=== PATIENT | female | born 1990 | race Caucasian/White ===

== ENCOUNTER → 2021-02-21 08:16 | Outpatient (CLI) | payer OTHER, SELFPAY ==
--- NOTE | ~2021-02-21 | MMUS_ITS ---
EXAMINATION: MM diagnostic era BI w chrystal, US breast BI complete HISTORY: Palpable breast abnormality by clinical examination TECHNIQUE: Additional 3-D tomosynthesis images of the breasts were performed and synthetic 2-D images were generated. CAD analysis was submitted and interpreted. High resolution complete bilateral breas t ultrasound was performed. COMPARISON: No prior studies for comparison. BREAST PARENCHYMAL COMPOSITION: The breasts are heterogenously dense, which may obscure small masses FINDINGS: MAMMOGRAPHIC FINDINGS: There are masses in the upper outer quadrant of both breasts which are partially obscured by fibrogla ndular tissue. There are no suspicious calcifications or architectural distortion. ULTRASOUND: Complete bilateral breast ultrasound: There are multiple benign bilateral breast cyst in both breasts . In the left axilla there is a 1.7 cm lymph node with normal fatty hilum. No suspicious masses in ei ther breast to suggest malignancy. IMPRESSION: 1. Benign bilateral breast masses. No evidence for malignancy in either breast. 2. Routine yearly screening mammogram and regular clinical breast examination are recommended. BI-RADS Category 2: Benign finding(s). Reviewed, dictated and finalized at location A. IMPRESSION: 1. Benign bilateral breast masses. No evidence for malignancy in either breast. 2. Routine yearly screening mammogram and regular clinical breast examination a re recommended. BI-RADS Category 2: Benign finding(s).
== END ==
PROVIDERS: Visit Provider Advanced Practice Midwife
DX: N63.20 Unspecified lump in the left breast, unspecified quadrant (principal)
CPT/HCPCS: 76641; 77062; 77066; G0279

== ENCOUNTER 2022-09-08 15:48 | Observation (INO) | payer OTHER, SELFPAY ==
[2022-09-08] VITALS (7 sets, daily range): BP systolic 130–159; BP diastolic 60–84; PULSE 101–103; RESP 18; TEMP 36.5; O2SAT 98–100
--- NOTE | ~2022-09-08 | US_ITS ---
US retroperitoneal comp 09/08/2022 18:37 Procedure: Realtime transabdominal ultrasound of the kidneys and bladder. Indication: Left flank pain Comparison: No prior studies for comparison. Findings: Right renal echotexture is normal bilaterally without hydronephrosis, contour deforming mas s or renal calculus. There is left hydronephrosis. There are multiple echogenic foci in the left kidn ey and proximal ureter, suspicious for stones. The right kidney measures 11.6 cm and left kidney michele ures 13 cm. Bladder not distended for evaluation. Impression: 1: Probable left renal/ureteral stones with mild hydronephrosis. Reviewed, dictated and finalized at location A. EQUIPMENT OPERATOR Impression: 1: Probable left renal/ureteral stones with mild hydronephrosis.
--- NOTE | 2022-09-08 17:54 | ED.BACK ---
HPI - Back Pain/Injury General Chief Complaint: Back Pain/Injury <Scott Silver PA-C - Last Filed: 09/08/22 20:36> Stated Complaint: left back pain/nausea/22 weeks preg <Scott Silver PA-C - Last Filed: 09/08/22 20:36> Time Seen by Provider: 09/08/22 17:41 <Scott Silver PA-C - Last Filed: 09/08/22 20:36> History of Present Illness HPI Narrative: This is a 32-year-old female who is currently 22 weeks who presents with left flank pain x2 days and worse today. She states the pain is primarily in the left flank but occasionally radiates into the left lower abdomen. She states that she called her OB who told her to come to the ED for further evaluation and to rule out a kidney infection. She denies any urinary symptoms at all. States the pain is at about 6 out of 10. She has not taken any medications prior to arrival. Denies pelvic pain, vaginal bleeding, discharge. Denies fevers, chills, chest pain, shortness of breath, headache, LOC, vision changes. Denies nausea vomiting and diarrhea. Denies any injuries or trauma. Denies any further complaints. A0 <Scott Silver PA-C - Last Filed: 09/08/22 20:36> Related Data Allergies/Adverse Reactions: Allergies Allergy/AdvReac Type Severity Reaction Status Date / Time fentanyl Allergy Unknown Unknown Verified 09/09/22 18:51 <Scott Silver PA-C - Last Filed: 09/08/22 20:36> Review of Systems Review of Systems: CONSTITUTIONAL: Denies fever, chills, or sweats. EYES: Denies visual changes, redness, or discharge. ENT: Denies rhinorrhea, congestion, sore throat, or otalgia. CARDIOVASCULAR: Denies chest pain, palpitations, or edema. RESPIRATORY: Denies cough or dyspnea. GASTROINTESTINAL: Endorses left flank pain and left lower abdominal pain. denies nausea, vomiting, or diarrhea. GENITOURINARY: Denies dysuria or hematuria. SKIN: Denies rash or itching. MUSCULOSKELETAL: Denies back pain, joint pain, or myalgia. NEUROLOGIC: Denies headache, numbness, dizziness, or weakness. PSYCHIATRIC: Denies anxiety or depression. <Scott Silver PA-C - Last Filed: 09/08/22 20:36> PMFSH Family History Family History: Family History Sibling Hypertension Asthma Father Family history of diabetes mellitus in first degree relative Family history of sleep apnea Grandparent Family history of malignant neoplasm of breast Family history of heart disease in male family member before age 55 Diabetes mellitus Other Family history of alcoholism Family history of malignant neoplasm <Scott Silver PA-C - Last Filed: 09/08/22 20:36> Social History Social History: Social History Smoking status: Never smoker Alcohol intake: current <Scott Silver PA-C - Last Filed: 09/08/22 20:36> Exam Narrative: GENERAL: Well-appearing, well-nourished, and in no acute distress. HEAD: Normocephalic, atraumatic. EYES: PERRLA and EOMI. ENT: Nares clear, no rhinorrhea or epistaxis. Mucous membranes moist. Oropharynx without tonsillar hypertrophy exudate or other lesions. NECK: Supple. No adenopathy or masses. CHEST: No respiratory distress. Clear to auscultation. No wheezes rales or rhonchi HEART: Regular rate and rhythm. No murmur heard. Normal peripheral pulses. ABDOMEN: Soft, nontender, nondistended, normal active bowel sounds. Gravid abdomen. There is also no tenderness in the flanks. Negative peritoneal signs. EXTREMITIES: Normal range of motion. No edema. SKIN: Warm, dry, no rash. NEURO: Alert and oriented x3. No focal deficits. PSYCH: Normal mood and affect. <Scott Silver PA-C - Last Filed: 09/08/22 20:36> Course Course Emergency Course: 1856: Spoke with Dr. Harley (urology) -agrees with plan for admission and agrees with starting Rocephin. No further recommendations. He will see her in the morning 193:
[2022-09-08 18:05] LABS: Basophils Percent Auto 0.1 % (0.2-1.2); Eosinophils Absolute Auto 0.1 K/mm3 (0-0.3); Eosinophils Percent Auto 0.6 % (0-4.4); Hematocrit 31.4 % (37.0-47.0); Hemoglobin 10.3 g/dL (12.0-15.0); Immature Granulocyte Absolute 0.05 K/mm3 (0.00-0.031); Immature Granulocyte Percent A 0.4 % (0-0.5); Lymphocytes Absolute Auto 1.22 K/mm3 (0.9-3.2); Lymphocytes Percent Auto 8.6 % (18.3-44.2); Mean Corpuscular HGB Conc 32.8 g/dl (32-36); Mean Corpuscular Hemoglobin 28.3 pg (26-34); Mean Corpuscular Volume 86.3 fl (80-100); Mean Platelet Volume 9.5 fl (7.4-10.4); Monocytes Absolute Auto 0.8 K/mm3 (0.1-0.6); Monocytes Percent Auto 5.7 % (2.6-8.5); Neutrophils Absolute Auto 11.9 K/mm3 (1.3-6.7); Neutrophils Percent Auto 84.6 % (45.5-73.1); Platelet Count Result 375 k/mm3 (150-375); Red Blood Count 3.64 M/mm3 (4.2-5.4); Red Cell Distribution Width 13.3 % (11.5-14.5); White Blood Count 14.1 K/mm3 (4.5-10.0)
[2022-09-08 18:15] LABS: Appearance Urine Slightly Cloudy (Clear); Bilirubin Urine Negative (Negative); Blood Urine 3+ (Negative); Color Urine Yellow (Yellow); Glucose Urine UA Negative (Negative); Ketones Urine Negative (Negative); Leukocyte Esterase Ur Negative LEU/UL (Negative); Nitrate Urine Negative (Negative); Protein Urine 2+ mg/dL (Negative); Specific Grav Ur 1.025 (1.001-1.035); Urobilinogen Urine 0.2 mg/dL (<2.0); pH Urine 6.5 (5.0-9.0)
[2022-09-08 18:16] LABS: Alanine Aminotransferase 17 U/L (6-35); Albumin Level 4.1 g/dL (3.5-5.1); Alkaline Phosphatase 118 U/L (38-126); Anion Gap 6 mmol/L (8-16); Aspartate Amino Transferase 17 U/L (14-36); Bilirubin,Total 0.3 mg/dL (0.2-1.3); Blood Urea Nitrogen 7 mg/dL (7-17); Calcium 9.2 mg/dL (8.4-10.2); Carbon Dioxide 24 mmol/L (22-30); Chloride 105 mmol/L (98-107); Estimated CRCL calculation 130 ml/min; Estimated Glomerular Filt Rate > 60; Glucose 125 mg/dL (65-110); Potassium 3.7 mmol/L (3.4-5.0); Sodium 135 mmol/L (137-145)
[2022-09-08 18:27] LABS: Mucus Urine Rare /lpf; RBC Urine >75 /hpf (0-2); Squamous Epithelial Cell Urine Occasional /hpf (Few); WBC Urine 51-75 /hpf
[2022-09-08 18:28] LABS: Add Urine Microscopic? YES
[2022-09-08] MEDS: SODIUM CHLORIDE 0.9% IV 1,000 ML 999 ML IV CONT (18:40)
--- NOTE | 2022-09-08 19:21 | PC.NURSE ---
First encounter w/ pt. Pt resting comfortably in bed, states her back pain is feeling better. NAD, updated pt on plan of care, all needs addressed, no question at this time.
[2022-09-08 19:37] LABS: Lactic Acid Reflex 1.2 mmol/L (0.7-2.0)
[2022-09-08 19:40] LABS: CRP 2.8 mg/dL (<1.0)
[2022-09-08 20:18] LABS: Erythrocyte Sedimentation Rate 124 mm/hr (0-20)
[2022-09-08 20:42] LABS: Influenza A QL RT-PCR Negative (Negative); Influenza B QL RT-PCR Negative (Negative); RSV RNA, RT-PCR Negative (Negative); SARS-CoV-2 RNA PCR Negative
[2022-09-09 02:48] VITALS: TEMP 36.4
[2022-09-09 02:55] VITALS: BP 130/65; PULSE 73
[2022-09-09 07:26] VITALS: BP 124/68; PULSE 92
--- NOTE | 2022-09-09 08:41 | PM.IMHP ---
H&P: HPI History of Present Illness Date/Time: 09/09/22 08:41 Chief Complaint: This is a 32-year-old female who is currently 22 weeks who presents with left flank pain x2 days and worse today.? She states the pain is primarily in the left flank but occasionally radiates into the left lower abdomen.? Currently denies any pain, received antibiotics and IV tylenol over night.? She denies any urinary symptoms at all.? Review of Systems Review of Systems: All systems reviewed & are unremarkable except as noted in HPI and below [facility] Family History Family History (Updated 02/18/16 @ 23:19 by DOCTOR UNKNOWN) Sibling Hypertension Asthma Father Family history of diabetes mellitus in first degree relative Family history of sleep apnea Grandparent Family history of malignant neoplasm of breast Family history of heart disease in male family member before age 55 Diabetes mellitus Other Family history of alcoholism Family history of malignant neoplasm Social History Social History Smoking status: Never smoker Alcohol intake: current Meds Home Medications and Allergies Allergies Allergy/AdvReac Type Severity Reaction Status Date / Time fentanyl Allergy Unknown Unknown Verified 09/08/22 17:51 Vital Signs Vital Signs - 24 hr 09/08/22 15:57 09/08/22 19:25 09/08/22 19:29 Temperature 36.5 C Pulse Rate 103 H Respiratory Rate 18 Blood Pressure 159/78 H 147/84 H Pulse Oximetry 100 98 99 Oxygen Delivery Room Air 09/08/22 19:30 09/08/22 19:31 09/08/22 19:45 Temperature Pulse Rate Respiratory Rate Blood Pressure 140/83 Pulse Oximetry 98 98 98 Oxygen Delivery 09/08/22 21:21 09/09/22 02:55 09/09/22 07:26 Temperature Pulse Rate 101 H 73 92 Respiratory Rate Blood Pressure 130/60 130/65 124/68 Pulse Oximetry Oxygen Delivery 09/09/22 02:48 Temperature 36.4 C L Pulse Rate Respiratory Rate Blood Pressure Pulse Oximetry Oxygen Delivery Exam Const: General: cooperative, healthy appearing and comfortable Resp: Effort & Inspection: normal respiratory effort and able to speak in complete sentences GI: Other: gravid Skin: General skin exam: normal color and no rashes or lesions noted Extrem: Right lower extremity: normal to inspection Left lower extremity: normal to inspection Psych: Appearance: grossly normal H&P: Results Labs Labs: Short CBC 09/08/22 Range/Units 17:56 WBC 14.1 H (4.5-10.0) K/mm3 Hgb 10.3 L (12.0-15.0) g/dL Hct 31.4 L (37.0-47.0) % Plt Count 375 (150-375) k/mm3 BMP 09/08/22 17:56 Sodium 135 L Potassium 3.7 Chloride 105 Carbon Dioxide 24 BUN 7 Creatinine 0.60 L Glucose 125 H Calcium 9.2 Liver Function 09/08/22 Range/Units 17:56 Total Bilirubin 0.3 (0.2-1.3) mg/dL AST 17 (14-36) U/L ALT 17 (6-35) U/L Alkaline Phosphatase 118 (38-126) U/L Albumin 4.1 (3.5-5.1) g/dL Urine 09/08/22 Range/Units 18:07 Urine Color Yellow (Yellow) Urine Appearance Slightly cloudy (Clear) Urine pH 6.5 (5.0-9.0) Ur Specific [place] 1.025 (1.001-1.035) Urine Protein 2+ H (Negative) mg/dL Urine Glucose (UA) Negative (Negative) mg/dL Assessment and Plan Assessment and plan (1) Left nephrolithiasis: Code(s): N20.0 - Calculus of kidney Status: Acute (2) UTI (urinary tract infection): Code(s): N39.0 - Urinary tract infection, site not specified Status: Acute Plan at 22 weeks gestation ?Left nephrolithiasis UTI (urinary tract infection) Rocephin Per ED, urology to see pt this morning, awaiting any orders, DR. Shipley aware of POC
--- NOTE | 2022-09-09 11:18 | PC.NURSE ---
Urology at the bedside.
--- NOTE | 2022-09-09 11:22 | PC.NURSE ---
Bob Teran updated on the pt being seen by Urology. Order received to discharge the pt with Macrobid 100mg BID for 7 days and follow up with Dr. Osborn in the office this week.
--- NOTE | 2022-09-09 14:56 | WPDURCON ---
Assessment and Plan Assessment and plan (1) Hydronephrosis, left: Code(s): N13.30 - Unspecified hydronephrosis Status: Acute Assessment and Plan: Etiology is unclear. Renal ultrasound is not the best study for documentation of stones. Nonetheless patient is completely asymptomatic at this time. I have discussed the possibility of a ureteral stone requiring intervention with either ureteroscopy or stent placement if pain recurs or has significant temperature or uncontrolled pain. Patient will follow-up at the office at this point time after delivery. If develops any problems prior that she can notify our office. Urology Consult Note HPI Date Seen: 09/09/22 Requesting Physician: Ezra Shipley MD Primary Care Provider: PHYSICIAN NOT ON STAFF Consult Narrative Reason for consult: Left renal colic with possible ureteral calculus and hydro Narrative: Anel Celaya is a 32 year old female with 22 weeks . Patient was admitted with left flank pain. Renal ultrasound revealed some mild left hydroureter and question of renal and ureteral stone. [place] [address] with a creatinine level of 0.6. Urinalysis reveals 51-75 white cells with greater than 75 red cells. Leukocyte esterase nitrate negative. Cultures are pending. The time my evaluation patient is completely asymptomatic and is not any pain since last night. Review of Systems Review of Systems: All systems reviewed & are unremarkable except as noted in HPI and below PMFSH Family History Family History Sibling Hypertension Asthma Father Family history of diabetes mellitus in first degree relative Family history of sleep apnea Grandparent Family history of malignant neoplasm of breast Family history of heart disease in male family member before age 55 Diabetes mellitus Other Family history of alcoholism Family history of malignant neoplasm Social History Social History Smoking status: Never smoker Alcohol intake: current Meds Home Medications and Allergies Home Medications Medication Instructions Recorded Confirmed Type nitrofurantoin macrocrystal 100 mg 100 mg PO Q12H #14 caps 09/09/22 Rx capsule Allergies Allergy/AdvReac Type Severity Reaction Status Date / Time fentanyl Allergy Unknown Unknown Verified 09/08/22 17:51 Vital Signs Vital Signs - 24 hr 09/08/22 15:57 09/08/22 19:25 09/08/22 19:29 Temperature 36.5 C Pulse Rate 103 H Respiratory Rate 18 Blood Pressure 159/78 H 147/84 H Pulse Oximetry 100 98 99 Oxygen Delivery Room Air 09/08/22 19:30 09/08/22 19:31 09/08/22 19:45 Temperature Pulse Rate Respiratory Rate Blood Pressure 140/83 Pulse Oximetry 98 98 98 Oxygen Delivery 09/08/22 21:21 09/09/22 02:55 09/09/22 07:26 Temperature Pulse Rate 101 H 73 92 Respiratory Rate Blood Pressure 130/60 130/65 124/68 Pulse Oximetry Oxygen Delivery 09/09/22 02:48 Temperature 36.4 C L Pulse Rate Respiratory Rate Blood Pressure Pulse Oximetry Oxygen Delivery Exam Const: General: cooperative, comfortable and no acute distress Resp: Effort & Inspection: normal respiratory effort Cardio: Rate: regular rate Rhythm: regular rhythm Results Labs 09/08/22 17:56 09/08/22 17:56 Labs: Short CBC 09/08/22 Range/Units 17:56 WBC 14.1 H (4.5-10.0) K/mm3 Hgb 10.3 L (12.0-15.0) g/dL Hct 31.4 L (37.0-47.0) % Plt Count 375 (150-375) k/mm3 BMP 09/08/22 17:56 Sodium 135 L Potassium 3.7 Chloride 105 Carbon Dioxide 24 BUN 7 Creatinine 0.60 L Glucose 125 H Calcium 9.2 Liver Function 09/08/22 Range/Units 17:56 Total Bilirubin 0.3 (0.2-1.3) mg/dL AST 17 (14-36) U/L ALT 17 (6-35) U/L Alkaline Phosphatase 118 (38-126)
--- NOTE | 2022-09-09 15:18 | PM.OBTRLD ---
OB - Triage/Final Diagnosis Visit Information Date of evaluation: 09/09/22 Reason for evaluation: other (flank pain) Comments/Additional reasons for admission: I have assessed the risk for this patient, Anel Celaya, and determined that she would benefit from observation care. Evaluation Laboratory results: Laboratory Tests 09/08/22 09/08/22 09/08/22 17:56 17:56 18:07 WBC 14.1 H RBC 3.64 L Hgb 10.3 L Hct 31.4 L MCV 86.3 MCH 28.3 MCHC 32.8 RDW 13.3 Plt Count 375 MPV 9.5 Immature Gran % (Auto) 0.4 Neut % (Auto) 84.6 H Lymph % (Auto) 8.6 L [place] % (Auto) 5.7 Eos % (Auto) 0.6 Baso % (Auto) 0.1 L Lymph # (Auto) 1.22 [place] # (Auto) 0.8 H Eos # (Auto) 0.1 Baso # (Auto) 0.0 Abs Immat Gran (auto) 0.05 H Absolute Neuts (auto) 11.9 H Absolute Nucleated RBC 0.0 Nucleated RBC % 0.0 ESR Sodium 135 L Potassium 3.7 Chloride 105 Carbon Dioxide 24 Anion Gap 6 L BUN 7 Creatinine 0.60 L Estim Creat Clear Calc 130 Estimated GFR > 60 Glucose 125 H Lactic Acid Calcium 9.2 Total Bilirubin 0.3 AST 17 ALT 17 Alkaline Phosphatase 118 C-Reactive Protein Total Protein 7.0 Albumin 4.1 Urine Color Yellow Urine Appearance Slightly cloudy Urine pH 6.5 Ur Specific [place] 1.025 Urine Protein 2+ H Urine Glucose (UA) Negative Urine Ketones Negative Ur Blood (Man) 3+ H Urine Nitrate Negative Urine Bilirubin Negative Urine Urobilinogen 0.2 Leukocyte Esterase Rfl Negative Urine RBC >75 H Urine WBC 51-75 H Ur Squamous Epith Cells Occasional Urine Mucus Rare Influenza A (RT-PCR) Influenza B (RT-PCR) RSV (RT-PCR) SARS-CoV-2 RNA (RT-PCR) 09/08/22 09/08/22 09/08/22 19:20 19:20 19:20 WBC RBC Hgb Hct MCV MCH MCHC RDW Plt Count MPV Immature Gran % (Auto) Neut % (Auto) Lymph % (Auto) [place] % (Auto) Eos % (Auto) Baso % (Auto) Lymph # (Auto) [place] # (Auto) Eos # (Auto) Baso # (Auto) Abs Immat Gran (auto) Absolute Neuts (auto) Absolute Nucleated RBC Nucleated RBC % ESR 124 H Sodium Potassium Chloride Carbon Dioxide Anion Gap BUN Creatinine Estim Creat Clear Calc Estimated GFR Glucose Lactic Acid 1.2 Calcium Total Bilirubin AST ALT Alkaline Phosphatase C-Reactive Protein 2.8 H Total Protein Albumin Urine Color Urine Appearance Urine pH Ur Specific [place] Urine Protein Urine Glucose (UA) Urine Ketones Ur Blood (Man) Urine Nitrate Urine Bilirubin Urine Urobilinogen Leukocyte Esterase Rfl Urine RBC Urine WBC Ur Squamous Epith Cells Urine Mucus Influenza A (RT-PCR) Influenza B (RT-PCR) RSV (RT-PCR) SARS-CoV-2 RNA (RT-PCR) 09/08/22 20:01 WBC RBC Hgb Hct MCV MCH MCHC RDW Plt Count MPV Immature Gran % (Auto) Neut % (Auto) Lymph % (Auto) [place] % (Auto) Eos % (Auto) Baso % (Auto) Lymph # (Auto) [place] # (Auto) Eos # (Auto) Baso # (Auto) Abs Immat Gran (auto) Absolute Neuts (auto) Absolute Nucleated RBC Nucleated RBC % ESR Sodium Potassium Chloride Carbon Dioxide Anion Gap BUN Creatinine Estim Creat Clear Calc Estimated GFR Glucose Lactic Acid Calcium Total Bilirubin AST ALT Alkaline Phosphatase C-Reactive Protein Total Protein Albumin Urine Color Urine Appearance Urine pH Ur Specific [place] Urine Protein Urine Glucose (UA) Urine Ketones Ur Blood (Man) Urine Nitrate Urine Bilirubin Urine Urobilinogen Leukocyte Esterase Rfl Urine RBC Urine WBC Ur Squamous Epith Cells Urine Mucus Influenza A (RT-PCR) Negative Influenza B (RT-PCR) Negative RSV (RT-PCR) Negative SARS-CoV-2 RNA (RT-PCR) Negative Vital signs: Vital Signs -
--- NOTE | 2022-09-12 16:59 | P.PNOB_ITS ---
OB - Triage/Final Diagnosis Visit Information Date of evaluation: 09/08/22 Reason for evaluation: other (flank pain) Comments/Additional reasons for admission: I have assessed the risk for this patient, Anel Celaya, and determined that she would benefit from observation care. Evaluation Laboratory results: Laboratory Tests 09/08/22 09/08/22 09/08/22 17:56 17:56 18:07 WBC 14.1 H RBC 3.64 L Hgb 10.3 L Hct 31.4 L MCV 86.3 MCH 28.3 MCHC 32.8 RDW 13.3 Plt Count 375 MPV 9.5 Immature Gran % (Auto) 0.4 Neut % (Auto) 84.6 H Lymph % (Auto) 8.6 L [place] % (Auto) 5.7 Eos % (Auto) 0.6 Baso % (Auto) 0.1 L Lymph # (Auto) 1.22 [place] # (Auto) 0.8 H Eos # (Auto) 0.1 Baso # (Auto) 0.0 Abs Immat Gran (auto) 0.05 H Absolute Neuts (auto) 11.9 H Absolute Nucleated RBC 0.0 Nucleated RBC % 0.0 ESR Sodium 135 L Potassium 3.7 Chloride 105 Carbon Dioxide 24 Anion Gap 6 L BUN 7 Creatinine 0.60 L Estim Creat Clear Calc 130 Estimated GFR > 60 Glucose 125 H Lactic Acid Calcium 9.2 Total Bilirubin 0.3 AST 17 ALT 17 Alkaline Phosphatase 118 C-Reactive Protein Total Protein 7.0 Albumin 4.1 Urine Color Yellow Urine Appearance Slightly cloudy Urine pH 6.5 Ur Specific [place] 1.025 Urine Protein 2+ H Urine Glucose (UA) Negative Urine Ketones Negative Ur Blood (Man) 3+ H Urine Nitrate Negative Urine Bilirubin Negative Urine Urobilinogen 0.2 Leukocyte Esterase Rfl Negative Urine RBC >75 H Urine WBC 51-75 H Ur Squamous Epith Cells Occasional Urine Mucus Rare Influenza A (RT-PCR) Influenza B (RT-PCR) RSV (RT-PCR) SARS-CoV-2 RNA (RT-PCR) 09/08/22 09/08/22 09/08/22 19:20 19:20 19:20 WBC RBC Hgb Hct MCV MCH MCHC RDW Plt Count MPV Immature Gran % (Auto) Neut % (Auto) Lymph % (Auto) [place] % (Auto) Eos % (Auto) Baso % (Auto) Lymph # (Auto) [place] # (Auto) Eos # (Auto) Baso # (Auto) Abs Immat Gran (auto) Absolute Neuts (auto) Absolute Nucleated RBC Nucleated RBC % ESR 124 H Sodium Potassium Chloride Carbon Dioxide Anion Gap BUN Creatinine Estim Creat Clear Calc Estimated GFR Glucose Lactic Acid 1.2 Calcium Total Bilirubin AST ALT Alkaline Phosphatase C-Reactive Protein 2.8 H Total Protein Albumin Urine Color Urine Appearance Urine pH Ur Specific [place]
== END 2022-09-09 11:55 | disposition home or self-care (01) ==
LOC: ANHED 19:36 → ANHOBPP 09-09 11:31
PROVIDERS: Emergency Medicine; Admitting Provider Obstetrics & Gynecology; Emergency Provider Physician Assistant; Visit Provider Obstetrics & Gynecology
DX: O99.891 Other specified diseases and conditions complicating pregnancy (principal); N13.2 Hydronephrosis with renal and ureteral calculous obstruction; N39.0 Urinary tract infection, site not specified; B95.1 Streptococcus, group B, as the cause of diseases classified elsewhere; O26.892 Other specified pregnancy related conditions, second trimester; M79.645 Pain in left finger(s); Z20.822 Contact with and (suspected) exposure to COVID-19; F10.90 Alcohol use, unspecified, uncomplicated; Z3A.22 22 weeks gestation of pregnancy
CPT/HCPCS: 36415; 76770; 80053; 81001; 81025; 83605; 85025; 85652; 86140; 87040; 87086; 87088; 87147; 87637; 96361; 96365; 96367; 99285; G0378; G0379; J0131; J0696; J7030

== ENCOUNTER 2022-09-09 18:27 | Observation (INO) | payer OTHER, SELFPAY ==
--- NOTE | 2022-09-09 18:27 | PC.NURSE ---
Patient arrived to OB unit with complaints of pain s/p kidney stone. Patient was discharged from hospital today and states she passed her kidney stone and is having pain following. Bob Teran CNM notified and orders received.
[2022-09-09 18:51] VITALS: BP 150/88; PULSE 97
[2022-09-09] MEDS: LACTATED RINGERS 1,000 ML 999 ML IV CONT (19:09)
[2022-09-09 19:13] LABS: Basophils Percent Auto 0.2 % (0.2-1.2); Eosinophils Absolute Auto 0.1 K/mm3 (0-0.3); Eosinophils Percent Auto 0.7 % (0-4.4); Hematocrit 31.1 % (37.0-47.0); Hemoglobin 10.1 g/dL (12.0-15.0); Immature Granulocyte Absolute 0.12 K/mm3 (0.00-0.031); Immature Granulocyte Percent A 0.8 % (0-0.5); Lymphocytes Absolute Auto 1.68 K/mm3 (0.9-3.2); Lymphocytes Percent Auto 11.5 % (18.3-44.2); Mean Corpuscular HGB Conc 32.5 g/dl (32-36); Mean Corpuscular Hemoglobin 29.1 pg (26-34); Mean Corpuscular Volume 89.6 fl (80-100); Mean Platelet Volume 9.6 fl (7.4-10.4); Monocytes Percent Auto 6.7 % (2.6-8.5); Neutrophils Absolute Auto 11.7 K/mm3 (1.3-6.7); Neutrophils Percent Auto 80.1 % (45.5-73.1); Platelet Count Result 347 k/mm3 (150-375); Red Blood Count 3.47 M/mm3 (4.2-5.4); Red Cell Distribution Width 13.5 % (11.5-14.5); White Blood Count 14.6 K/mm3 (4.5-10.0)
[2022-09-09 19:42] VITALS: BP 144/78; PULSE 91
[2022-09-09 20:35] VITALS: BMI 32.3
[2022-09-09] MEDS: oxyCODONE HCL (*CRX) 5 MG TAB IR PO (20:49)
[2022-09-10] MEDS: oxyCODONE HCL (*CRX) 5 MG TAB IR PO ×2 (00:51→04:40)
[2022-09-10 04:48] VITALS: BP 141/80; PULSE 102
[2022-09-10 05:00] VITALS: TEMP 37.3
[2022-09-10 07:30] VITALS: TEMP 36.6
[2022-09-10 07:31] VITALS: BP 139/74; PULSE 97
--- NOTE | 2022-09-10 09:01 | PM.IMHP ---
H&P: HPI History of Present Illness Date/Time: 09/10/22 09:01 Chief Complaint: left flank pain. Pt was admitted 09/08/22 for renal colic and nephrolithiasis. pain was resolved with IV tylenol, urology consulted and pt sent home. Pt readmitted 09/09/22 for worsening pain throughout the day when she went home. rated pain at a 5-6 on arrival, IV tylenol not helpful and roxicodone was given.Pt pain this am 1 . Taking roxicodone and using a heating pad for relief. No other complaints or concerns Review of Systems Review of Systems: All systems reviewed & are unremarkable except as noted in HPI and below PMFSH Family History Family History Sibling Hypertension Asthma Father Family history of diabetes mellitus in first degree relative Family history of sleep apnea Grandparent Family history of malignant neoplasm of breast Family history of heart disease in male family member before age 55 Diabetes mellitus Other Family history of alcoholism Family history of malignant neoplasm Social History Social History Smoking status: Never smoker Alcohol intake: current Meds Home Medications and Allergies Home Medications Medication Instructions Recorded Confirmed Type nitrofurantoin macrocrystal 100 mg 100 mg PO Q12H #14 caps 09/09/22 09/09/22 Rx capsule Allergies Allergy/AdvReac Type Severity Reaction Status Date / Time fentanyl Allergy Unknown Unknown Verified 09/09/22 18:51 Vital Signs Vital Signs - 24 hr 09/09/22 18:51 09/09/22 19:42 09/10/22 04:48 Temperature Pulse Rate 97 91 102 H Blood Pressure 150/88 H 144/78 H 141/80 H Oxygen Delivery 09/10/22 05:00 09/10/22 07:31 09/10/22 07:30 Temperature 37.3 C Pulse Rate 97 Blood Pressure 139/74 Oxygen Delivery Room Air 09/10/22 07:30 Temperature 36.6 C Pulse Rate Blood Pressure Oxygen Delivery Exam Const: General: cooperative and healthy appearing Resp: Effort & Inspection: normal respiratory effort GI: Other: gravid H&P: Results Labs Labs: Short CBC 09/09/22 Range/Units 19:03 WBC 14.6 H (4.5-10.0) K/mm3 Hgb 10.1 L (12.0-15.0) g/dL Hct 31.1 L (37.0-47.0) % Plt Count 347 (150-375) k/mm3 Assessment and Plan Assessment and plan (1) Hydronephrosis, left: Code(s): N13.30 - Unspecified hydronephrosis Status: Acute (2) Left nephrolithiasis: Code(s): N20.0 - Calculus of kidney Status: Acute Plan at 22 weeks gestation nephrolithiasis and renal colic plan hydration and alternate roxicodone and tylenol, heat for pain management continue macrobid f/u Urology outpatient If pain severe or any other changes return to LD
--- NOTE | 2022-09-14 07:09 | P.PNOB_ITS ---
OB - Triage/Final Diagnosis Visit Information Date of evaluation: 09/09/22 Reason for evaluation: other (flank pain, nephrolithiasis) Comments/Additional reasons for admission: I have assessed the risk for this patient, Anel Celaya, and determined that she would benefit from observation care. Evaluation Laboratory results: Laboratory Tests 09/09/22 19:03 WBC 14.6 H RBC 3.47 L Hgb 10.1 L Hct 31.1 L MCV 89.6 MCH 29.1 MCHC 32.5 RDW 13.5 Plt Count 347 MPV 9.6 Immature Gran % (Auto) 0.8 H Neut % (Auto) 80.1 H Lymph % (Auto) 11.5 L [place] % (Auto) 6.7 Eos % (Auto) 0.7 Baso % (Auto) 0.2 Lymph # (Auto) 1.68 [place] # (Auto) 1.0 H Eos # (Auto) 0.1 Baso # (Auto) 0.0 Abs Immat Gran (auto) 0.12 H Absolute Neuts (auto) 11.7 H Absolute Nucleated RBC 0.0 Nucleated RBC % 0.0
== END 2022-09-10 09:43 | disposition home or self-care (01) ==
PROVIDERS: Admitting Provider Obstetrics & Gynecology; PCP Advanced Practice Midwife; Visit Provider Obstetrics & Gynecology
DX: O99.891 Other specified diseases and conditions complicating pregnancy (principal); N20.0 Calculus of kidney; N23 Unspecified renal colic; N13.30 Unspecified hydronephrosis; Z3A.22 22 weeks gestation of pregnancy
CPT/HCPCS: 36415; 85025; A9270; G0378; G0379; J0131; J7120

== ENCOUNTER 2022-10-13 16:33 | Observation (INO) | payer OTHER, SELFPAY ==
[2022-10-13] VITALS (23 sets, daily range): BP systolic 46–157; BP diastolic 25–91; PULSE 80–99; TEMP 36.8
--- NOTE | ~2022-10-13 | US_ITS ---
US retroperitoneal limited DATE: 10/13/2022 17:48 INDICATION: Left flank pain TECHNIQUE: Real-time imaging of left kidney and urinary bladder COMPARISON: September 08, 2022 retroperitoneal ultrasound FINDINGS: The right kidney measures approximately 13.8 cm length. There is moderate left hydronephros is 3.2 x 2 x 2.9 cm calcified density is noted at the lower pole left kidney. Noncontrast CT abdomen pelvis examination would be more definitive for evaluation of urinary tract ca lculus and any urinary tract obstruction. IMPRESSION: Moderate left hydronephrosis Left nephrolithiasis Reviewed, dictated and finalized at [facility]. Reviewed, dictated and finalized at location [facility].
--- NOTE | ~2022-10-13 | US_ITS ---
US retroperitoneal comp DATE: 10/14/2022 07:54 INDICATION: Hydronephrosis. History of stones. TECHNIQUE: Real-time imaging of the kidneys and urinary bladder COMPARISON: 10/13/2022 retroperitoneal ultrasound FINDINGS: The right kidney measures 11.8 cm, the left kidney 13.9 cm. There no renal mass lesion is evident. Moderately severe left hydroureteronephrosis. Prominent calculus with shadowing, lower left kidney. Right ureteral jet is demonstrated in the urinary bladder but none on the left. I IMPRESSION: Moderately severe left hydronephrosis with absent left ureteral jet. Left ureteral obstru ction is suspected Left nephrolithiasis Reviewed, dictated and finalized at [facility]. Reviewed, dictated and finalized at location [facility]. IMPRESSION: Moderately severe left hydronephrosis with absent left ureteral jet . Left ureteral obstruction is suspected Left nephrolithiasis
[2022-10-13 17:27] LABS: Basophils Absolute Auto 0.1 K/mm3 (0.0-0.1); Basophils Percent Auto 0.3 % (0.2-1.2); Eosinophils Absolute Auto 0.1 K/mm3 (0-0.3); Eosinophils Percent Auto 0.4 % (0-4.4); Hematocrit 29.6 % (37.0-47.0); Hemoglobin 9.7 g/dL (12.0-15.0); Immature Granulocyte Absolute 0.04 K/mm3 (0.00-0.031); Immature Granulocyte Percent A 0.3 % (0-0.5); Lymphocytes Absolute Auto 1.31 K/mm3 (0.9-3.2); Lymphocytes Percent Auto 8.7 % (18.3-44.2); Mean Corpuscular HGB Conc 32.8 g/dl (32-36); Mean Corpuscular Hemoglobin 28.6 pg (26-34); Mean Corpuscular Volume 87.3 fl (80-100); Mean Platelet Volume 9.3 fl (7.4-10.4); Monocytes Absolute Auto 0.8 K/mm3 (0.1-0.6); Monocytes Percent Auto 5.1 % (2.6-8.5); Neutrophils Absolute Auto 12.8 K/mm3 (1.3-6.7); Neutrophils Percent Auto 85.2 % (45.5-73.1); Platelet Count Result 311 k/mm3 (150-375); Red Blood Count 3.39 M/mm3 (4.2-5.4); Red Cell Distribution Width 13.6 % (11.5-14.5); White Blood Count 15.1 K/mm3 (4.5-10.0)
--- NOTE | 2022-10-13 17:30 | OBADM ---
This patient, Anel Celaya, admitted to the OB room OB Post [facility] for observation. Patient/family oriented to hospital policies and general routines including ID bracelet, bed and alarms, visiting hours, pain management, procedures, bathroom and other care routines, personal items, smoking policy, room service/diet, and visiting hours. Patient/Family are encouraged to report perceived risks to care and to ask questions if they do not understand what they are told or what they should do.
--- NOTE | 2022-10-13 17:33 | PC.NURSE ---
1700--Pt c/o left flank pain with history of a stone. Office visit with urologist yesterday with no pain then. Pain began this AM-unrelieved with Tylenol and minimally relieved with Norco5.
[2022-10-13 17:37] LABS: Appearance Urine Cloudy (Clear); Bacteria Urine Rare /hpf; Bilirubin Urine Negative (Negative); Blood Urine Negative (Negative); Color Urine Yellow (Yellow); Glucose Urine UA Negative (Negative); Hyaline Casts Urine Present /lpf; Ketones Urine 1+ mg/dL (Negative); Leukocyte Esterase Ur 1+ LEU/UL (Negative); Nitrate Urine Negative (Negative); Non Pathogenic Casts 0-2; Protein Urine Trace mg/dL (Negative); RBC Urine 0-2 /hpf (0-2); Specific Grav Ur 1.026 (1.001-1.035); Squamous Epithelial Cell Urine Occasional /hpf (Few); Urobilinogen Urine 0.2 mg/dL (<2.0); WBC Urine 51-100 /hpf; pH Urine 6.5 (5.0-9.0)
[2022-10-13 17:38] LABS: Add Urine Microscopic? YES
--- NOTE | 2022-10-13 18:19 | PC.NURSE ---
1726--to US per wheelchair
[2022-10-13] MEDS: ONDANSETRON HCL ODT 4 MG TABLET PO (18:24)
[2022-10-13] MEDS: HYDROcodone/acetaminophen (*CRX) 5-325 MG TABLET 1 TAB PO ×2 (19:22→23:30)
--- NOTE | 2022-10-13 19:58 | PC.NURSE ---
1899 -- Fox MORENO notified of US results, that patient is hoping to be able to go home for her daughters birthday republican, BP results given to provider with pt stating her BP is high when she is in pain. Orders to get a recent temperature, pain rating, and to find out who her urology consult was with. TIFFANIE states she will review patient's US and chart when she is near the computer in about 15 minutes and call back. 1929 -- Fox MORENO calls unit and orders for urology consult to night due to the size of the calcification and to confirm POC, and PC ratio and 24 hour total protein due to BP results, and that patient will be staying over night for pain control and urology consult in person in the morning. Fox MORENO states she has updated Dr Shipley 1954 -- 24 hour urine jug brought to patient with toilet hat and strainer with education on how to use all of them. Jug of water brought to patient 2002 - Dr Jiménez calls unit and is informed of US results, patient pain control methods and ratings, and orders are received for US of bladder to check for uretal jets and that urology will see her in the morning.
[2022-10-13 22:42] LABS: Collection Time Urine 24 HOURS
[2022-10-13 23:03] LABS: Creatinine Urine 152.2 mg/dL; Total Protein Urine Random 13 mg/dL
--- NOTE | 2022-10-14 04:23 | PM.IMHP ---
H&P: HPI History of Present Illness Date/Time: 10/14/22 04:23 Chief Complaint: Left side pain Narrative: 32 y/o at 27 weeks gestation. History of kidney stones. Urology visit on . Was not experiencing pain at that time. Pt presented with left side pain that started yesterday morning. Pain unrelieved by po medication at home. Denies urinary difficulty. complicated by previous with thinning of uterine scar. PMHX: kidney stone and asthma Review of Systems Review of Systems: See HPI All systems reviewed & are unremarkable except as noted in HPI and below Constitutional: Constitutional: Reports as per HPI and Reports no additional constitutional complaints Eyes: Eyes: Reports as per HPI ENT: Reports system reviewed and no additional complaints, except as documented Cardiovascular: Cardiovascular: Reports as per HPI Respiratory: Respiratory: Reports as per HPI Gastrointestinal: Gastrointestinal: Reports as per HPI Genitourinary: Genitourinary: Reports no additional female genitourinary complaints Musculoskeletal: Musculoskeletal: Reports no additional musculoskeletal complaints Integumentary/Breasts: Skin/Breast: Reports system reviewed and no additional complaints, except as docu Neurologic: Reports system reviewed and no additional complaints, except as documented Psychiatric: Psychiatric: Reports no additional psychiatric complaints Endocrine: Endocrine: Reports no additional endocrine complaints Hematologic/Lymphatic: Hematologic/Lymphatic: Reports no additional hematologic/lymphatic complaints Allergic/Immunologic: Allergic/Immunologic: Reports no additional allergic/immunologic complaints [facility] Family History Family History Sibling Hypertension Asthma Father Family history of diabetes mellitus in first degree relative Family history of sleep apnea Grandparent Family history of malignant neoplasm of breast Family history of heart disease in male family member before age 55 Diabetes mellitus Other Family history of alcoholism Family history of malignant neoplasm Social History Social History Smoking status: Never smoker Alcohol intake: current Meds Home Medications and Allergies Home Medications Medication Instructions Recorded Confirmed Type nitrofurantoin macrocrystal 100 mg 100 mg PO Q12H #14 caps 09/09/22 09/09/22 Rx capsule Allergies Allergy/AdvReac Type Severity Reaction Status Date / Time fentanyl Allergy Unknown Unknown Verified 09/09/22 18:51 Vital Signs Vital Signs - 24 hr 10/13/22 17:02 10/13/22 17:25 10/13/22 18:26 Temperature Pulse Rate 99 97 96 Blood Pressure 151/88 H 150/91 H 153/85 H 10/13/22 18:30 10/13/22 18:45 10/13/22 19:00 Temperature Pulse Rate 97 89 92 Blood Pressure 153/84 H 155/84 H 150/85 H 10/13/22 19:15 10/13/22 19:30 10/13/22 20:00 Temperature Pulse Rate 92 97 97 Blood Pressure 157/87 H 139/81 141/83 H 10/13/22 20:15 10/13/22 19:32 10/13/22 20:30 Temperature 98.3 F Pulse Rate 96 89 Blood Pressure 138/79 140/79 10/13/22 20:47 10/13/22 21:12 10/13/22 21:15 Temperature Pulse Rate 80 83 87 Blood Pressure 46/25 L 138/78 139/77 10/13/22 21:30 10/13/22 21:45 10/13/22 22:00 Temperature Pulse Rate 80 83 87 Blood Pressure 137/78 135/74 135/78 10/13/22 22:15 10/13/22 22:30 10/13/22 22:45 Temperature Pulse Rate 89 91 93 Blood Pressure 136/78 139/80 132/85 10/13/22 23:00 10/13/22 23:15 Temperature Pulse Rate 90 89 Blood Pressure 138/83 134/78 Exam Narrative: 32 y/o healthy appearing female. No acute distress but does c/o intermittent pain that improves with po mediation. VSS and afebrile ( with exception of elevated pressures when in pain) Uterus: no contractions, fhr category 1 Abdomen: no tenderness No sp tenderness Le
[2022-10-14] MEDS: HYDROcodone/acetaminophen (*CRX) 5-325 MG TABLET 1 TAB PO (04:28)
[2022-10-14] MEDS: ONDANSETRON HCL ODT 4 MG TABLET PO (04:31)
[2022-10-14 04:32] VITALS: BP 146/87; PULSE 92
--- NOTE | 2022-10-14 04:48 | PC.NURSE ---
Aziza0 Fox MORENO at bedside assessing patient and discussing POC.
[2022-10-14 07:51] VITALS: BP 145/86; PULSE 97
[2022-10-14 07:54] VITALS: TEMP 36.6
[2022-10-14 08:00] VITALS: BP 142/76; PULSE 97
--- NOTE | 2022-10-14 09:58 | WPDURCON ---
Assessment and Plan Assessment and plan (1) Hydronephrosis, left: Code(s): N13.30 - Unspecified hydronephrosis Status: Acute (2) Left nephrolithiasis: Code(s): N20.0 - Calculus of kidney Status: Acute (3) UTI (urinary tract infection): Code(s): N39.0 - Urinary tract infection, site not specified Status: Acute Plan No need for ureteral stent as pain in managed with oral meds Flomax for possible ueteral stone PO hydration Send urine for Cx Empiric abx f/u BAILEY in 2 weeks Call OB if flank pain worsens, N/V, or fever Urology Consult Note HPI Date Seen: 10/14/22 Requesting Physician: Nora Osborn MD Primary Care Provider: Edna Teran CNM Family Provider: 32 y/o at 27 weeks gestation. History of kidney stones. Urology visit on . Was not experiencing pain at that time. Pt presented with left side pain that started yesterday morning. Pain unrelieved by po medication at home. Denies urinary difficulty. complicated by previous with thinning of uterine scar. Renal US shows mild to mod left hydro with mm stone in lower pole left kidney. Pain is controlled with oral narcotics, no fever, no N/V. Consult Narrative Narrative: Anel Celaya is a 32 year old female Review of Systems Eyes: Eyes: Reports no additional eye complaints Cardiovascular: Cardiovascular: Reports no additional cardiovascular complaints Genitourinary: Genitourinary: Reports no additional female genitourinary complaints [facility] Family History Family History Sibling Hypertension Asthma Father Family history of diabetes mellitus in first degree relative Family history of sleep apnea Grandparent Family history of malignant neoplasm of breast Family history of heart disease in male family member before age 55 Diabetes mellitus Other Family history of alcoholism Family history of malignant neoplasm Social History Social History Smoking status: Never smoker Alcohol intake: current Meds Home Medications and Allergies Allergies Allergy/AdvReac Type Severity Reaction Status Date / Time fentanyl Allergy Unknown Unknown Verified 09/09/22 18:51 Vital Signs Vital Signs - 24 hr 10/13/22 17:02 10/13/22 17:25 10/13/22 18:26 Temperature Pulse Rate 99 97 96 Blood Pressure 151/88 H 150/91 H 153/85 H 10/13/22 18:30 10/13/22 18:45 10/13/22 19:00 Temperature Pulse Rate 97 89 92 Blood Pressure 153/84 H 155/84 H 150/85 H 10/13/22 19:15 10/13/22 19:30 10/13/22 20:00 Temperature Pulse Rate 92 97 97 Blood Pressure 157/87 H 139/81 141/83 H 10/13/22 20:15 10/13/22 19:32 10/13/22 20:30 Temperature 36.8 C Pulse Rate 96 89 Blood Pressure 138/79 140/79 10/13/22 20:47 10/13/22 21:12 10/13/22 21:15 Temperature Pulse Rate 80 83 87 Blood Pressure 46/25 L 138/78 139/77 10/13/22 21:30 10/13/22 21:45 10/13/22 22:00 Temperature Pulse Rate 80 83 87 Blood Pressure 137/78 135/74 135/78 10/13/22 22:15 10/13/22 22:30 10/13/22 22:45 Temperature Pulse Rate 89 91 93 Blood Pressure 136/78 139/80 132/85 10/13/22 23:00 10/13/22 23:15 10/14/22 04:32 Temperature Pulse Rate 90 89 92 Blood Pressure 138/83 134/78 146/87 H 10/14/22 07:51 10/14/22 08:00 10/14/22 07:54 Temperature 36.6 C Pulse Rate 97 97 Blood Pressure 145/86 H 142/76 H Exam GI: Other: mild left flank pain Results Labs 10/13/22 17:12 10/14/22 09:28 Labs: Short CBC 10/13/22 Range/Units 17:12 WBC 15.1 H (4.5-10.0) K/mm3 Hgb 9.7 L (12.0-15.0) g/dL Hct 29.6 L (37.0-47.0) % Plt Count 311 (150-375) k/mm3 Urine 10/13/22 Range/Units 17:12 Urine Color Yellow (Yellow) Urine Appearance Cloudy H (Clear) Urine pH 6.5 (5.0-9.0) Ur Specific [place] 1.026 (1.
[2022-10-14 09:59] LABS: Alanine Aminotransferase 15 U/L (6-35); Albumin Level 3.7 g/dL (3.5-5.1); Alkaline Phosphatase 145 U/L (38-126); Anion Gap 6 mmol/L (8-16); Aspartate Amino Transferase 17 U/L (14-36); Bilirubin,Total 0.6 mg/dL (0.2-1.3); Blood Urea Nitrogen 5 mg/dL (7-17); Calcium 8.5 mg/dL (8.4-10.2); Carbon Dioxide 24 mmol/L (22-30); Chloride 103 mmol/L (98-107); Estimated Glomerular Filt Rate > 60; Glucose 120 mg/dL (65-110); Potassium 3.7 mmol/L (3.4-5.0); Sodium 133 mmol/L (137-145)
--- NOTE | 2022-10-24 08:05 | PM.OBTRLD ---
OB - Triage/Final Diagnosis Visit Information Comments/Additional reasons for admission: I have assessed the risk for this patient, Anel Celaya, and determined that she would benefit from observation care. Evaluation Laboratory results: Laboratory Tests 10/13/22 10/13/22 10/13/22 17:12 17:12 20:42 WBC 15.1 H RBC 3.39 L Hgb 9.7 L Hct 29.6 L MCV 87.3 MCH 28.6 MCHC 32.8 RDW 13.6 Plt Count 311 MPV 9.3 Immature Gran % (Auto) 0.3 Neut % (Auto) 85.2 H Lymph % (Auto) 8.7 L [place] % (Auto) 5.1 Eos % (Auto) 0.4 Baso % (Auto) 0.3 Lymph # (Auto) 1.31 [place] # (Auto) 0.8 H Eos # (Auto) 0.1 Baso # (Auto) 0.1 Abs Immat Gran (auto) 0.04 H Absolute Neuts (auto) 12.8 H Absolute Nucleated RBC 0.0 Nucleated RBC % 0.0 Sodium Potassium Chloride Carbon Dioxide Anion Gap BUN Creatinine Estim Creat Clear Calc Estimated GFR Glucose Calcium Total Bilirubin AST ALT Alkaline Phosphatase Total Protein Albumin Urine Color Yellow Urine Appearance Cloudy H Urine pH 6.5 Ur Specific [place] 1.026 Urine Protein Trace Urine Glucose (UA) Negative Urine Ketones 1+ H Ur Blood (Man) Negative Urine Nitrate Negative Urine Bilirubin Negative Urine Urobilinogen 0.2 Leukocyte Esterase Rfl 1+ H Urine RBC 0-2 Urine WBC 51-100 Ur Squamous Epith Cells Occasional Urine Bacteria Rare Urine Casts 0-2 Hyaline Casts Present U Random Total Protein 13 Ur 24 Hour Volume TNP Urine Creatinine 152.2 Creatinine Clearance TNP 10/14/22 09:28 WBC RBC Hgb Hct MCV MCH MCHC RDW Plt Count MPV Immature Gran % (Auto) Neut % (Auto) Lymph % (Auto) [place] % (Auto) Eos % (Auto) Baso % (Auto) Lymph # (Auto) [place] # (Auto) Eos # (Auto) Baso # (Auto) Abs Immat Gran (auto) Absolute Neuts (auto) Absolute Nucleated RBC Nucleated RBC % Sodium 133 L Potassium 3.7 Chloride 103 Carbon Dioxide 24 Anion Gap 6 L BUN 5 L Creatinine 0.90 Estim Creat Clear Calc Not Reportable Estimated GFR > 60 Glucose 120 H Calcium 8.5 Total Bilirubin 0.6 AST 17 ALT 15 Alkaline Phosphatase 145 H Total Protein 7.0 Albumin 3.7 Urine Color Urine Appearance Urine pH Ur Specific [place] Urine Protein Urine Glucose (UA) Urine Ketones Ur Blood (Man) Urine Nitrate Urine Bilirubin Urine Urobilinogen Leukocyte Esterase Rfl Urine RBC Urine WBC Ur Squamous Epith Cells Urine Bacteria Urine Casts Hyaline Casts U Random Total Protein Ur 24 Hour Volume Urine Creatinine Creatinine Clearance Final Diagnosis (1) Hydronephrosis, left: Code(s): N13.30 - Unspecified hydronephrosis Status: Acute
== END 2022-10-14 11:59 | disposition home or self-care (01) ==
PROVIDERS: Advanced Practice Midwife; Admitting Provider Obstetrics & Gynecology; PCP Advanced Practice Midwife; Visit Provider Obstetrics & Gynecology
DX: O23.12 Infections of bladder in pregnancy, second trimester (principal); N39.0 Urinary tract infection, site not specified; M54.9 Dorsalgia, unspecified; O26.832 Pregnancy related renal disease, second trimester; N13.30 Unspecified hydronephrosis; N20.0 Calculus of kidney; O99.312 Alcohol use complicating pregnancy, second trimester; Z3A.27 27 weeks gestation of pregnancy
CPT/HCPCS: 36415; 76770; 76775; 80053; 81001; 81050; 82575; 84156; 85025; 87086; A9270; G0378; G0379

== ENCOUNTER 2022-10-14 20:38 | Outpatient (CLI) | payer OTHER, SELFPAY ==
[2022-10-14 20:43] VITALS: BMI 33.5
[2022-10-14 21:54] LABS: Collection Time Urine 24 HOURS
[2022-10-14 22:03] LABS: Total Protein Urine Random 11 mg/dL
[2022-10-14 22:05] LABS: Creatinine Urine 66.3 mg/dL; Patient Weight 207 Lbs
[2022-10-14 22:22] LABS: Total Protein Urine 24 Hr 264 mg/24hr (28-141); Total Volume 24 Hour Urine 2400 ml
== END 2022-10-14 20:39 | disposition home or self-care (01) ==
LOC: ANHOBOP 20:39
PROVIDERS: Advanced Practice Midwife; PCP Advanced Practice Midwife; Visit Provider Obstetrics & Gynecology
DX: O13.9 Gestational [pregnancy-induced] hypertension without significant proteinuria, unspecified trimester (principal); Z3A.00 Weeks of gestation of pregnancy not specified
CPT/HCPCS: 81050; 82575; 84156

== ENCOUNTER 2022-11-15 14:20 | Outpatient (CLI) | payer OTHER, SELFPAY ==
[2022-11-15 15:15] VITALS: BP 137/83; PULSE 99
[2022-11-15 15:19] LABS: Basophils Percent Auto 0.4 % (0.2-1.2); Eosinophils Absolute Auto 0.1 K/mm3 (0-0.3); Eosinophils Percent Auto 1.3 % (0-4.4); Hematocrit 28.6 % (37.0-47.0); Hemoglobin 9.2 g/dL (12.0-15.0); Immature Granulocyte Absolute 0.03 K/mm3 (0.00-0.031); Immature Granulocyte Percent A 0.4 % (0-0.5); Lymphocytes Absolute Auto 1.37 K/mm3 (0.9-3.2); Lymphocytes Percent Auto 16.1 % (18.3-44.2); Mean Corpuscular HGB Conc 32.2 g/dl (32-36); Mean Corpuscular Volume 87.2 fl (80-100); Mean Platelet Volume 8.6 fl (7.4-10.4); Monocytes Absolute Auto 0.6 K/mm3 (0.1-0.6); Monocytes Percent Auto 6.8 % (2.6-8.5); Neutrophils Absolute Auto 6.4 K/mm3 (1.3-6.7); Platelet Count Result 369 k/mm3 (150-375); Red Blood Count 3.28 M/mm3 (4.2-5.4); Red Cell Distribution Width 15.9 % (11.5-14.5); White Blood Count 8.5 K/mm3 (4.5-10.0)
[2022-11-15 15:29] LABS: Alanine Aminotransferase 16 U/L (6-35); Albumin Level 3.8 g/dL (3.5-5.1); Alkaline Phosphatase 165 U/L (38-126); Anion Gap 5 mmol/L (8-16); Aspartate Amino Transferase 16 U/L (14-36); Bilirubin,Total 0.4 mg/dL (0.2-1.3); Blood Urea Nitrogen 8 mg/dL (7-17); Calcium 8.8 mg/dL (8.4-10.2); Carbon Dioxide 26 mmol/L (22-30); Chloride 103 mmol/L (98-107); Estimated Glomerular Filt Rate > 60; Glucose 90 mg/dL (65-110); Potassium 3.7 mmol/L (3.4-5.0); Sodium 134 mmol/L (137-145); Uric Acid 4.2 mg/dL (2.5-7.5)
[2022-11-15 15:30] VITALS: BP 141/84; PULSE 96
[2022-11-15 15:32] LABS: Appearance Urine Clear (Clear); Bacteria Urine None Seen /hpf; Bilirubin Urine Negative (Negative); Blood Urine Negative (Negative); Color Urine Yellow (Yellow); Glucose Urine UA Negative (Negative); Ketones Urine Negative (Negative); Leukocyte Esterase Ur Trace LEU/UL (Negative); Nitrate Urine Negative (Negative); Non Pathogenic Casts 0-2; Protein Urine Trace mg/dL (Negative); Squamous Epithelial Cell Urine Occasional /hpf (Few)
[2022-11-15 15:44] LABS: Creatinine Urine 138.5 mg/dL; Total Protein Urine Random 22 mg/dL; Ur Ttl Prot Creatinine Ratio 0.16 mg/mg (0-0.20)
[2022-11-15 15:45] VITALS: BP 144/84; PULSE 92
[2022-11-15 15:47] LABS: Add Urine Microscopic? YES
--- NOTE | 2022-11-15 15:50 | PC.NURSE ---
Dr. Osborn updated with pt labs and blood pressures. tracing reviewed with provider. Orders received for 24 hour urine and pt to call office to schedule weekly NST. Pt is seeing MFM as well.
[2022-11-15 16:03] VITALS: BP 137/83; PULSE 96
== END 2022-11-15 16:01 | disposition home or self-care (01) ==
LOC: ANHOBOP 14:31 → ANHOBPP 14:33
PROVIDERS: Advanced Practice Midwife; PCP Internal Medicine; Visit Provider Obstetrics & Gynecology
DX: O16.9 Unspecified maternal hypertension, unspecified trimester (principal); Z3A.00 Weeks of gestation of pregnancy not specified
CPT/HCPCS: 36415; 59025; 80053; 81001; 82570; 84156; 84550; 85025; 87086; 99199

== ENCOUNTER 2022-11-16 19:56 | Outpatient (CLI) | payer OTHER, SELFPAY ==
[2022-11-16 20:07] VITALS: BMI 32.3
[2022-11-17 09:33] LABS: Collection Time Urine 24 HOURS; Total Volume 24 Hour Urine 1600 ml
[2022-11-17 09:35] LABS: Patient Weight 200 Lbs
[2022-11-17 09:44] LABS: Creatinine Clearance Urine 118.5 ml/min (75-125); Creatinine Urine 98.3 mg/dL; Total Protein Urine 24 Hr 272 mg/24hr (28-141); Total Protein Urine Random 17 mg/dL
== END 2022-11-16 20:00 | disposition home or self-care (01) ==
LOC: ANHOBOP 20:05
PROVIDERS: PCP Internal Medicine; Referring Provider Obstetrics & Gynecology; Visit Provider Obstetrics & Gynecology
DX: O16.9 Unspecified maternal hypertension, unspecified trimester (principal); Z3A.00 Weeks of gestation of pregnancy not specified
CPT/HCPCS: 81050; 82575; 84156

== ENCOUNTER 2022-11-30 19:12 | Outpatient (CLI) | payer OTHER, SELFPAY ==
[2022-11-30 20:29] VITALS: BMI 33.0
[2022-12-01 03:05] LABS: Collection Time Urine 24 HOURS
[2022-12-01 03:13] LABS: Creatinine Urine 98.1 mg/dL; Patient Weight 204 Lbs
[2022-12-01 03:15] LABS: Creatinine Clearance Urine 125.6 ml/min (75-125); Total Volume 24 Hour Urine 1500 ml
[2022-12-01 03:22] LABS: Total Protein Urine 24 Hr 330 mg/24hr (28-141); Total Protein Urine Random 22 mg/dL
== END 2022-11-30 19:13 | disposition home or self-care (01) ==
LOC: ANHOBOP 20:25
PROVIDERS: Obstetrics & Gynecology; PCP Internal Medicine; Visit Provider Obstetrics & Gynecology
DX: O13.9 Gestational [pregnancy-induced] hypertension without significant proteinuria, unspecified trimester (principal); Z3A.00 Weeks of gestation of pregnancy not specified
CPT/HCPCS: 81050; 82575; 84156

== ENCOUNTER 2022-12-11 12:24 | Outpatient (CLI) | payer OTHER, SELFPAY ==
[2022-12-11] MEDS: BETAMETHASONE SOD PHOS/ACETATE 30 MG/5 ML VIAL 12 MG IM (13:06)
== END 2022-12-11 13:12 | disposition home or self-care (01) ==
LOC: ANHOBOP 12:44 → ANHOBPP 12:44
PROVIDERS: PCP Internal Medicine; Visit Provider Obstetrics & Gynecology
DX: Z34.90 Encounter for supervision of normal pregnancy, unspecified, unspecified trimester (principal); Z3A.00 Weeks of gestation of pregnancy not specified
CPT/HCPCS: 96372; 99199; J0702

== ENCOUNTER 2022-12-12 13:15 | Outpatient (CLI) | payer OTHER, SELFPAY ==
[2022-12-12] MEDS: BETAMETHASONE SOD PHOS/ACETATE 30 MG/5 ML VIAL 12 MG IM (13:36)
== END 2022-12-12 13:37 | disposition home or self-care (01) ==
LOC: ANHOBOP 13:32
PROVIDERS: PCP Internal Medicine; Visit Provider Obstetrics & Gynecology
DX: O36.5990 Maternal care for other known or suspected poor fetal growth, unspecified trimester, not applicable or unspecified (principal); Z3A.00 Weeks of gestation of pregnancy not specified
CPT/HCPCS: 96372; J0702

== ENCOUNTER 2022-12-12 13:15 | Outpatient (RCR) | payer OTHER, SELFPAY ==
[2022-11-24 12:56] VITALS: BP 155/97; PULSE 89
[2022-11-29 13:21] LABS: Alanine Aminotransferase 14 U/L (6-35); Albumin Level 3.8 g/dL (3.5-5.1); Alkaline Phosphatase 164 U/L (38-126); Anion Gap 5 mmol/L (8-16); Aspartate Amino Transferase 14 U/L (14-36); Bilirubin,Total 0.4 mg/dL (0.2-1.3); Blood Urea Nitrogen 8 mg/dL (7-17); Calcium 9.2 mg/dL (8.4-10.2); Carbon Dioxide 24 mmol/L (22-30); Chloride 104 mmol/L (98-107); Estimated Glomerular Filt Rate > 60; Glucose 92 mg/dL (65-110); Potassium 3.7 mmol/L (3.4-5.0); Sodium 133 mmol/L (137-145); Uric Acid 4.2 mg/dL (2.5-7.5)
[2022-11-29 13:23] LABS: Basophils Percent Auto 0.3 % (0.2-1.2); Eosinophils Absolute Auto 0.1 K/mm3 (0-0.3); Eosinophils Percent Auto 0.9 % (0-4.4); Hematocrit 30.8 % (37.0-47.0); Hemoglobin 9.9 g/dL (12.0-15.0); Immature Granulocyte Absolute 0.03 K/mm3 (0.00-0.031); Immature Granulocyte Percent A 0.3 % (0-0.5); Lymphocytes Absolute Auto 1.34 K/mm3 (0.9-3.2); Lymphocytes Percent Auto 15.6 % (18.3-44.2); Mean Corpuscular HGB Conc 32.1 g/dl (32-36); Mean Corpuscular Hemoglobin 28.2 pg (26-34); Mean Corpuscular Volume 87.7 fl (80-100); Mean Platelet Volume 9.1 fl (7.4-10.4); Monocytes Absolute Auto 0.5 K/mm3 (0.1-0.6); Monocytes Percent Auto 5.5 % (2.6-8.5); Neutrophils Absolute Auto 6.7 K/mm3 (1.3-6.7); Neutrophils Percent Auto 77.4 % (45.5-73.1); Platelet Count Result 395 k/mm3 (150-375); Red Blood Count 3.51 M/mm3 (4.2-5.4); Red Cell Distribution Width 16.6 % (11.5-14.5); White Blood Count 8.6 K/mm3 (4.5-10.0)
[2022-11-29 13:27] LABS: Appearance Urine Clear (Clear); Bilirubin Urine Negative (Negative); Blood Urine Negative (Negative); Color Urine Yellow (Yellow); Glucose Urine UA Negative (Negative); Ketones Urine Negative (Negative); Leukocyte Esterase Ur Negative LEU/UL (NEGATIVE); Nitrate Urine Negative (Negative); Protein Urine Negative (Negative); Specific Grav Ur 1.003 (1.001-1.035); Urobilinogen Urine 0.2 mg/dL (<2.0)
[2022-11-29 13:30] LABS: Creatinine Urine 11.2 mg/dL; Total Protein Urine Random 14 mg/dL; Ur Ttl Prot Creatinine Ratio 1.25 mg/mg (0-0.20)
[2022-11-29 13:48] LABS: Add Urine Microscopic? NO
[2022-11-29 14:39] VITALS: BP 146/86; PULSE 91
--- NOTE | ~2022-12-12 | US_ITS ---
EXAMINATION: US OB BPP wo non-stress DATE: 11/24/2022 12:26 INDICATION: Decelerations. Third trimester. TECHNIQUE: Real-time pelvic ultrasound was performed. COMPARISON: None. FINDINGS: There is a single living fetus in vertex presentation. The placenta is fundal. heart rate is 1 31 beats per minute (bpm). Biophysical profile performed by the technologist: breathing (30 sec sustained breathing in 30 minutes): 2 out of 2 movement (3 gross body movements in 30 minutes): 2 out of 2 tone (one episode of kdaspoc-zbwdxsjbl-vanoceh limb movement): 2 out of 2 Amniotic fluid pocket (2 cm): 2 out of 2 Total score: 8 out of 8 IMPRESSION: 1. Single living fetus in vertex presentation. 2. Biophysical profile 8 out of 8. Reviewed, dictated and finalized at location [facility].
== END 2022-12-22 17:48 | disposition home or self-care (01) ==
LOC: ANHOBOP 13:15
PROVIDERS: PCP Internal Medicine; Visit Provider Obstetrics & Gynecology
DX: O26.893 Other specified pregnancy related conditions, third trimester (principal); R03.0 Elevated blood-pressure reading, without diagnosis of hypertension; O36.8330 Maternal care for abnormalities of the fetal heart rate or rhythm, third trimester, not applicable or unspecified; Z3A.33 33 weeks gestation of pregnancy; Z3A.34 34 weeks gestation of pregnancy
CPT/HCPCS: 36415; 59025; 76819; 80053; 81003; 82570; 84156; 84550; 85025; 87086

== ENCOUNTER 2022-12-19 05:50 | Inpatient (IN) | payer OTHER, SELFPAY ==
[2022-12-19] VITALS (51 sets, daily range): BP systolic 103–149; BP diastolic 66–107; PULSE 67–120; RESP 14–21; TEMP 36.2–37.1; O2SAT 91–100; BMI 33.7
--- NOTE | 2022-12-19 06:15 | LDADM ---
This patient, Anel Celaya, was admitted to Labor/Delivery/Recovery 120 on 12/19/22 at 05:50. Plans for labor, pain management and were discussed with patient. Patient/family oriented to hospital policies and general routines including ID bracelet, bed and alarms, visiting hours, pain management, procedures, bathroom and other care routines, personal items, smoking policy, room service/diet and guest tray routines, infant security routines, and visiting hours. Patient/Family are encouraged to report perceived risks to care and to ask questions if they do not understand what they are told or what they should do. See OBIX for further documentation.
[2022-12-19] MEDS: LACTATED RINGERS 1,000 ML 125 ML IV CONT ×2 (06:20→07:35)
[2022-12-19 06:31] LABS: Basophils Percent Auto 0.4 % (0.2-1.2); Eosinophils Absolute Auto 0.1 K/mm3 (0-0.3); Eosinophils Percent Auto 0.8 % (0-4.4); Hematocrit 34.6 % (37.0-47.0); Hemoglobin 11.1 g/dL (12.0-15.0); Immature Granulocyte Absolute 0.05 K/mm3 (0.00-0.031); Immature Granulocyte Percent A 0.6 % (0-0.5); Lymphocytes Absolute Auto 2.27 K/mm3 (0.9-3.2); Lymphocytes Percent Auto 27.1 % (18.3-44.2); Mean Corpuscular HGB Conc 32.1 g/dl (32-36); Mean Corpuscular Hemoglobin 27.9 pg (26-34); Mean Corpuscular Volume 86.9 fl (80-100); Mean Platelet Volume 9.7 fl (7.4-10.4); Monocytes Absolute Auto 0.6 K/mm3 (0.1-0.6); Monocytes Percent Auto 7.2 % (2.6-8.5); Neutrophils Absolute Auto 5.4 K/mm3 (1.3-6.7); Neutrophils Percent Auto 63.9 % (45.5-73.1); Platelet Count Result 357 k/mm3 (150-375); Red Blood Count 3.98 M/mm3 (4.2-5.4); Red Cell Distribution Width 16.4 % (11.5-14.5); White Blood Count 8.4 K/mm3 (4.5-10.0)
--- NOTE | 2022-12-19 07:13 | WPDANESEPPF ---
Anes - Initial Pre Proc Eval Procedure: Operation Date: 12/19/22 07:30 Proposed Procedures p Repeat Section - Nora Osborn MD Date/Time: 12/19/22 07:13 Surgeon: Nora Osborn MD Pre Op Diagnosis: C/S Patient Data Age: 32 Gender: F Height: 1.68 m Weight: 95 kg Last Vital Signs Temp 37.1 C 12/19/22 06:06 Pulse 92 12/19/22 07:01 Resp 17 12/19/22 06:06 BP 137/84 12/19/22 07:01 O2 Del Method Room Air 12/19/22 06:11 Allergies Allergy/AdvReac Type Severity Reaction Status Date / Time fentanyl Allergy Unknown Unknown Verified 11/03/22 14:15 Home Medications Medication Instructions Recorded Confirmed Type Adult Low Dose Aspirin 81 mg BYMOUTH DAILY 10/30/22 12/19/22 History Claritin 10 mg DAILY 10/30/22 12/19/22 History albuterol 90 mcg/actuation aerosol 90 mcg inhalation BID PRN 10/30/22 12/19/22 History inhaler Shortness Of Breath Or Wheezing vits 75-iron 28 mg-folic 1 pkg PO DAILY 10/30/22 12/19/22 History acid 800 mcg-omega3 440 mg oral pack (One Daily ) Laboratory Tests 12/19/22 06:08 WBC 8.4 K/mm3 (4.5-10.0) RBC 3.98 L M/mm3 (4.2-5.4) Hgb 11.1 L g/dL (12.0-15.0) Hct 34.6 L % (37.0-47.0) MCV 86.9 fl (80-100) MCH 27.9 pg (26-34) MCHC 32.1 g/dl (32-36) RDW 16.4 H % (11.5-14.5) Plt Count 357 k/mm3 (150-375) MPV 9.7 fl (7.4-10.4) Immature Gran % (Auto) 0.6 H % (0-0.5) Neut % (Auto) 63.9 % (45.5-73.1) Lymph % (Auto) 27.1 % (18.3-44.2) [place] % (Auto) 7.2 % (2.6-8.5) Eos % (Auto) 0.8 % (0-4.4) Baso % (Auto) 0.4 % (0.2-1.2) Lymph # (Auto) 2.27 K/mm3 (0.9-3.2) [place] # (Auto) 0.6 K/mm3 (0.1-0.6) Eos # (Auto) 0.1 K/mm3 (0-0.3) Baso # (Auto) 0.0 K/mm3 (0.0-0.1) Abs Immat Gran (auto) 0.05 H K/mm3 (0.00-0.031) Absolute Neuts (auto) 5.4 K/mm3 (1.3-6.7) Absolute Nucleated RBC 0.0 K/mm3 (0.0-0.012) Nucleated RBC % 0.0 % (0.0-0.2) RPR Pending Blood Type O Positive Antibody Screen Pending Patient hx anesthesia problems: none Family hx anesthesia problems: none Results Review: All pre-operative results and documents have been reviewed as part of the pre-operative evaluation. [facility] Family History Family History Sibling Hypertension Asthma Father Family history of diabetes mellitus in first degree relative Family history of sleep apnea Grandparent Family history of malignant neoplasm of breast Family history of heart disease in male family member before age 55 Diabetes mellitus Other Family history of alcoholism Family history of malignant neoplasm Social History Social History Smoking status: Never smoker Second hand tobacco smoke exposure: No Alcohol intake: current Substance use: never Lack of Transportation: No Lack of Food: Never True Current Housing: I Have Housing Concerned About Future Housing: No Difficulty Paying Gas/Electric Bills: No Difficulty Paying for Meds: No Currently Unemployed: No Education: Bachelor's Degree Difficulty w/ Childcare or Family Care: No Spiritual care concerns: No Anes - Eval Final PreProcedure Day of Procedure 12/19/22 07:13 Patient weight: obese Heart: regular rate and rhythm Lungs: clear to auscultation Airway: Mallampati scale class II Neurological: alert and oriented Last oral intake: >/= 8 hours ASA classification: III Emergent: no Anesthetic plan: proceed Anesthesia type and monitoring: regional spinal and standard monitoring Results Review: All pre-operative results and documents have been reviewed as part of the pre-operative evaluation. Informed Consent: The patient's anesthetic plan and its attendant risks and benefits were discussed with the patient/family/POA. Que
--- NOTE | 2022-12-19 07:24 | PM.IMHP ---
H&P: HPI History of Present Illness Date/Time: 12/19/22 07:24 Chief Complaint: repeat CS, preeclampsia Narrative: Aidee is a 32yo at 37.0 with preE since 34w here for repeat CS. also complicated by kidney stone, anemia for which she received IV iron, covid during , asthma, and possible thinning of her uterine scar, for which she saw MFM. She denies any PreE sx. She is not feeling contractions. Good FM. Review of Systems Review of Systems: All systems reviewed & are unremarkable except as noted in HPI and below PMFSH Family History Family History Sibling Hypertension Asthma Father Family history of diabetes mellitus in first degree relative Family history of sleep apnea Grandparent Family history of malignant neoplasm of breast Family history of heart disease in male family member before age 55 Diabetes mellitus Other Family history of alcoholism Family history of malignant neoplasm Social History Social History Smoking status: Never smoker Second hand tobacco smoke exposure: No Alcohol intake: current Substance use: never Lack of Transportation: No Lack of Food: Never True Current Housing: I Have Housing Concerned About Future Housing: No Difficulty Paying Gas/Electric Bills: No Difficulty Paying for Meds: No Currently Unemployed: No Education: Bachelor's Degree Difficulty w/ Childcare or Family Care: No Spiritual care concerns: No Meds Home Medications and Allergies Home Medications Medication Instructions Recorded Confirmed Type Adult Low Dose Aspirin 81 mg BYMOUTH DAILY 10/30/22 12/19/22 History Claritin 10 mg DAILY 10/30/22 12/19/22 History albuterol 90 mcg/actuation aerosol 90 mcg inhalation BID PRN 10/30/22 12/19/22 History inhaler Shortness Of Breath Or Wheezing vits 75-iron 28 mg-folic 1 pkg PO DAILY 10/30/22 12/19/22 History acid 800 mcg-omega3 440 mg oral pack (One Daily ) Allergies Allergy/AdvReac Type Severity Reaction Status Date / Time fentanyl Allergy Unknown Unknown Verified 11/03/22 14:15 Vital Signs Vital Signs - 24 hr 12/19/22 06:06 12/19/22 06:47 12/19/22 07:01 Temperature 98.7 F Pulse Rate 92 97 92 Respiratory Rate 17 Blood Pressure 149/98 H 137/88 137/84 Oxygen Delivery 12/19/22 07:16 12/19/22 06:11 Temperature Pulse Rate 85 Respiratory Rate Blood Pressure 149/81 H Oxygen Delivery Room Air Exam Const: General: no acute distress Resp: Effort & Inspection: normal respiratory effort Auscultation: clear to auscultation bilaterally Cardio: Rate: regular rate Rhythm: regular rhythm GI: GI Palp: Yes Soft to palpation Extrem: General: normal to inspection H&P: Results Labs Labs: Short CBC 12/19/22 Range/Units 06:08 WBC 8.4 (4.5-10.0) K/mm3 Hgb 11.1 L (12.0-15.0) g/dL Hct 34.6 L (37.0-47.0) % Plt Count 357 (150-375) k/mm3 Assessment and Plan Assessment and plan (1) Left nephrolithiasis: Code(s): N20.0 - Calculus of kidney Status: Acute (2) Mild preeclampsia: Code(s): O14.00 - Mild to moderate pre-eclampsia, unspecified trimester Status: Acute (3) History of delivery: Code(s): Z98.891 - History of uterine scar from previous surgery Status: Acute Plan will proceed with repeat CS no features of severe PreE, mild consented for CS FHT category 2 with 2 late decelerations, otherwise reassuring with accelerations and good variability
--- NOTE | 2022-12-19 07:28 | WPDHPUPDATE1 ---
History and Physical Update Update Date/Time: 12/19/22 07:28 History and Physical has been reviewed, including an updated exam of the patient. There are NO changes in the patient's condition. Risks, benefits, and alternatives have been discussed and questions answered. Patient agrees to proceed with procedure.
[2022-12-19] MEDS: ceFAZolin 2 GM/D5W 50 ML 2 GM/50 ML BAG IVPB (07:30)
--- NOTE | 2022-12-19 08:58 | PM.OBPRVD ---
OB - Delivery Note Procedure Delivery date: 12/19/22 Procedure: Procedures Operation Date: 12/19/22 07:30 <No data on this case meets the specified criteria> repeat low transverse section Events: Preeclampsia w/o severe features and Previous Delivery Route of delivery: Specimen: Yes (placenta) Quantitative Blood Loss (ml): 1,085 Anesthesia type: Spinal Disposition: Floor Complications: none Narrative: PreOp Dx:prior CS, mild PreEclampsia Post Op Dx:same The patient was taken to the OR and received spinal anesthesia. She was placed in dorsal supine position with left lateral tilt. SCDs and lopez were placed. She was prepped and draped in the normal sterile fashion. A Pfannensteil skin incision was made and carried through to the underlying layer of fascia. The fascia was incised in the midline and then extended laterally using Macdonald scissors. The muscles were in the midline and the peritoneum was entered bluntly. The peritoneal incision was extended inferiorly and superiorly with care to avoid the bladder. The bladder blade was then inserted, the vesicouterine peritoneum was grasped, incised with Metzenbaum scissors, and a bladder flap created. The bladder blade was reinserted. A low transverse uterine incision was made with a scalpel and extended bluntly. AROM was performed and fluid was noted to be clear. The head was delivered, followed by the remainder of the baby. The baby's oropharynx was suctioned. After 30 seconds, the cord was clamped and cut and the infant was handed off. Cord blood was obtained and the placenta was then removed manually. The uterus was exteriorized. A moist lap sponge was used to curette the endometrium. The uterine incision was then closed with two layers of 0-Vicryl in a running, locking fashion. Good hemostasis was noted. The posterior cul de sac was irrigated with normal saline and cleared of all clot and debris. The uterus was returned to the abdomen. Both lateral gutters were then irrigated. The rectus muscles were inspected and found to require one figure of eight suture for hemostasis. The fascia was reapproximated using 0-Vicryl in running fashion. The subcutaneous tissue was irrigated with normal saline and made hemostatic with Bovie electrocautery. The subcutaneous tissue was reapproximated with a layer of running 2-0 plain gut. The skin was then closed with absorbable jay. Steri strips and a bandage were applied. The uterus was evacuated. The patient tolerated the procedure very well. All counts were correct. She was taken to the recovery room in good condition. Berry Baby Date of : 12/19/22 Time of : 08:05 Weeks of gestation at delivery: 37 gender: Male Weight (pounds): 6 Weight (ounces): 6 presentation: vertex Placenta delivery description: Manual Removal Cord Vessel Description: 3 Vessels and Delayed Cord Clamping score one minute: 8 score five minutes: 9
--- NOTE | 2022-12-19 11:09 | PC.NURSE ---
Patient transferred to post room #292 via stretcher. Support person present. Oriented to unit, room, information board, rooming in, admission packet and security measures. Patient verbalizes understanding.
[2022-12-19] MEDS: OXYTOCIN 30 UNITS/NS 500 ML 30 UNITS/500 ML BAG 125 UNITS IV CONT (11:20)
--- NOTE | 2022-12-19 14:51 | PC.NURSE ---
[id number] Introductions were made and Mother is demonstrating having effectively with the cradle positioning. Mother denies pain. After a 20 minute breastfeed with good rocking jaw motions and appropriate pauses self detached with no nipple misshaping. Mother declines any additional assistance/education at this time. Mother is encouraged to call for assistance if her doesn?t latch, there is discomfort with latching or she has difficulty waking to breastfeed. Mother voiced understanding of information shared and name was written on the white board with instructions on how to call for assistance if needed. Reported to the primary RN.
[2022-12-19] MEDS: DEXTROSE 5%/0.45% SOD CHL 1,000 ML 125 ML IV CONT (15:26)
[2022-12-20 06:03] LABS: Basophils Percent Auto 0.2 % (0.2-1.2); Eosinophils Percent Auto 0.3 % (0-4.4); Hematocrit 28.3 % (37.0-47.0); Hemoglobin 8.9 g/dL (12.0-15.0); Immature Granulocyte Absolute 0.06 K/mm3 (0.00-0.031); Immature Granulocyte Percent A 0.5 % (0-0.5); Lymphocytes Absolute Auto 1.63 K/mm3 (0.9-3.2); Lymphocytes Percent Auto 12.2 % (18.3-44.2); Mean Corpuscular HGB Conc 31.4 g/dl (32-36); Mean Corpuscular Hemoglobin 27.9 pg (26-34); Mean Corpuscular Volume 88.7 fl (80-100); Mean Platelet Volume 9.6 fl (7.4-10.4); Monocytes Absolute Auto 0.8 K/mm3 (0.1-0.6); Monocytes Percent Auto 6.3 % (2.6-8.5); Neutrophils Absolute Auto 10.7 K/mm3 (1.3-6.7); Neutrophils Percent Auto 80.5 % (45.5-73.1); Platelet Count Result 264 k/mm3 (150-375); Red Blood Count 3.19 M/mm3 (4.2-5.4); Red Cell Distribution Width 16.6 % (11.5-14.5); White Blood Count 13.3 K/mm3 (4.5-10.0)
--- NOTE | 2022-12-20 07:53 | P.PNOB_ITS ---
OB - PN: Subj Subjective Date/time seen: 12/20/22 07:53 Patient comments: no complaints and pain well controlled baby status: doing well and nursing well Narrative: POD 1 from primary CS. Doing well. Normal lochia. Eating, ambulating, lopez out. Denies PreE sx. BPs 120s-140s/70s-80s. OB - PN: Obj Data Labs 12/20/22 05:48 Labs: Laboratory Results - last 24 hr 12/20/22 05:48 WBC 13.3 H RBC 3.19 L Hgb 8.9 L Hct 28.3 L MCV 88.7 MCH 27.9 MCHC 31.4 L RDW 16.6 H Plt Count 264 MPV 9.6 Immature Gran % (Auto) 0.5 Neut % (Auto) 80.5 H Lymph % (Auto) 12.2 L [place] % (Auto) 6.3 Eos % (Auto) 0.3 Baso % (Auto) 0.2 Lymph # (Auto) 1.63 [place] # (Auto) 0.8 H Eos # (Auto) 0.0 Baso # (Auto) 0.0 Abs Immat Gran (auto) 0.06 H Absolute Neuts (auto) 10.7 H Absolute Nucleated RBC 0.0 Nucleated RBC % 0.0 OB - PN A/P Assessment and Plan (1) Mild preeclampsia: Code(s): O14.00 - Mild to moderate pre-eclampsia, unspecified trimester Status: Acute (2) delivery delivered: Code(s): O82 - Encounter for delivery without indication Status: Acute (3) Anemia due to blood loss: Code(s): D50.0 - Iron deficiency anemia secondary to blood loss (chronic) Status: Acute Plan day: 1 Plan: routine care Comments: IV iron BPs good tachycardia improved, likely due to blood loss Time Spent With Patient Time: Total time spent is greater than 50% in coordination of care (as documented) at patient's floor/unit and/or counseling patient: Exam Narrative: NAD abdomen soft, appropriately tender, incision bandaged Extremities nontender with 1+ edema
[2022-12-20 09:00] VITALS: BP 135/90; PULSE 102; RESP 16; TEMP 37.4; O2SAT 98
[2022-12-20] MEDS: DOCUSATE SODIUM 100 MG CAPSULE PO ×2 (10:44→17:56)
[2022-12-20] MEDS: MULTIVIT/MIN/PREN/FOL AC/IRON TABLET 1 TAB PO (10:44)
[2022-12-20] MEDS: POLYSACCHARIDE IRON COMPLEX 150 MG CAPSULE PO ×2 (10:44→17:56)
[2022-12-20 12:26] VITALS: BP 136/85; PULSE 101; RESP 16; TEMP 37.6; O2SAT 99
[2022-12-20] MEDS: IBUPROFEN 600 MG TABLET PO ×2 (12:54→19:55)
[2022-12-20] MEDS: HYDROcodone/acetaminophen (*CRX) 5-325 MG TABLET 1 TAB PO ×2 (12:54→19:56)
--- NOTE | 2022-12-20 13:59 | WPDANLDPN2 ---
Anes-Prog Note L&D Date/Time: 12/20/22 13:59 Neuro status: Neuro function grossly intact. Vital Signs: Last Vital Signs Temp 37.6 C 12/20/22 12:26 Pulse 101 H 12/20/22 12:26 Resp 16 12/20/22 12:26 BP 136/85 12/20/22 12:26 Pulse Ox 99 12/20/22 12:26 O2 Del Method Room Air 12/19/22 11:00 Pain score (VAS): 2 I/O: Intake & Output 12/19/22 12/20/22 12/20/22 23:59 07:59 15:59 Intake Total 1500 250 Output Total 600 1000 Balance 900 -750 Patient feedback: Patient satisfied with anesthetic care.
--- NOTE | 2022-12-20 13:59 | WPDANLDNPN2 ---
Anes-Prog Note L&D-Neuraxial Date/Time: 12/20/22 13:59 Patient feedback: Patient satisfied with post-operative pain management.
--- NOTE | 2022-12-20 15:30 | PC.NURSE ---
[id number] Introductions were made, then consulted with patient to assess needs related to . Mother led the conversation with her?plans to feed?her infant and states she is able to independently latch her without pain. Mother was having difficulty getting infant to wake and latch after the circumcision, so she consented to testing to be done. Resources provided for inpatient and outpatient services with the feeding sheet, mom/baby guide and name written on the white board. Mother voiced understanding of information and will call if there is a request for assistance. Mother is prepared to eat her breakfast. Reported to the RN orienting with the primary RN that has the infant in the nursery for a bath.
[2022-12-20 15:55] LABS: Rapid Plasma Reagin Non-Reactive (NonReactive)
[2022-12-20 16:12] VITALS: BP 133/76
[2022-12-20 20:02] VITALS: BP 133/82; PULSE 102; RESP 18; TEMP 36.6; O2SAT 97
[2022-12-20 22:54] VITALS: BP 134/83
[2022-12-21 05:16] VITALS: BP 125/79
--- NOTE | 2022-12-21 07:23 | PM.OBPNVD ---
OB - PN: Subj Subjective Date/time seen: 12/21/22 07:23 s/p section day 2 baby doing well pain managed flatus present OB - PN: Obj Data Labs 12/20/22 05:48 Labs: Laboratory Results - last 24 hr 12/19/22 06:08 RPR Non-reactive OB - PN A/P Plan day: 2 Plan: routine care Time Spent With Patient Time: Total time spent is greater than 50% in coordination of care (as documented) at patient's floor/unit and/or counseling patient: Review of Systems Review of Systems: All systems reviewed & are unremarkable except as noted in HPI and below Exam Narrative: Incision CDI Const: General: cooperative, healthy appearing and comfortable Chest: Chest palpation & inspection: normal inspection of the chest Resp: Effort & Inspection: normal respiratory effort Skin: General skin exam: normal color Extrem: Right lower extremity: normal to inspection Left lower extremity: normal to inspection Psych: Appearance: grossly normal and well kempt
[2022-12-21] MEDS: DOCUSATE SODIUM 100 MG CAPSULE PO ×2 (07:58→17:11)
[2022-12-21] MEDS: MULTIVIT/MIN/PREN/FOL AC/IRON TABLET 1 TAB PO (07:58)
[2022-12-21] MEDS: HYDROcodone/acetaminophen (*CRX) 5-325 MG TABLET 1 TAB PO ×3 (07:58→22:20)
[2022-12-21] MEDS: POLYSACCHARIDE IRON COMPLEX 150 MG CAPSULE PO ×2 (07:58→17:11)
[2022-12-21] MEDS: IBUPROFEN 600 MG TABLET PO ×3 (07:59→22:19)
[2022-12-21 08:15] VITALS: BP 132/75; PULSE 90; RESP 16; TEMP 36.9; O2SAT 99
[2022-12-21 12:05] VITALS: BP 132/71; PULSE 90; RESP 18; TEMP 36.6; O2SAT 99
[2022-12-21 16:00] VITALS: BP 143/82; PULSE 91; RESP 18; O2SAT 97
[2022-12-21 22:00] VITALS: BP 146/85; PULSE 83; RESP 18; TEMP 36.4; O2SAT 96
[2022-12-22 01:45] VITALS: BP 144/80
[2022-12-22 05:45] VITALS: BP 140/82
--- NOTE | 2022-12-22 06:50 | P.PNOB_ITS ---
OB - PN: Subj Subjective Date/time seen: 12/22/22 06:50 Patient comments: no complaints and pain well controlled baby status: doing well and nursing well [place] feeding status: exclusively breast feeding Narrative: Denies PreE sx. OB - PN: Obj Data Labs 12/20/22 05:48 OB - PN A/P Plan day: 3 Plan: routine care and discharge home Comments: BPs normotensive Home today BP check 1 week Time Spent With Patient Time: Total time spent is greater than 50% in coordination of care (as documented) at patient's floor/unit and/or counseling patient: Exam Narrative: NAD abdomen soft, appropriately tender, incision CDI Extremities nontender with 1+ edema
--- NOTE | 2022-12-22 06:56 | PM.OBDSVD ---
DS: Admitting Diagnosis Discharge Date 12/22/22 Admitting Diagnosis IUP 37w, prior CS, preeclampsia DS: Discharge Diagnosis Discharge Diagnosis (1) Anemia due to blood loss: Code(s): D50.0 - Iron deficiency anemia secondary to blood loss (chronic) Status: Acute (2) delivery delivered: Code(s): O82 - Encounter for delivery without indication Status: Acute (3) Mild preeclampsia: Code(s): O14.00 - Mild to moderate pre-eclampsia, unspecified trimester Status: Acute OB - DS: Summary Hospital Course Hospital Course: Aidee was admitted for repeat CS at 37w due to mild PreEclampsia. She had an uncomplicated delivery and course. Blood pressures remained normal or mildly elevated and she did not require magnesium. She was discharged home on POD3. OB Procedures : NST, PIH Mgmt and Ultrasound OB Procedures Intrapartum: OB Procedures: : None Peripartum Data Infant Delivery Method: Section Procedures: Procedures Operation Date: 12/19/22 07:30 Actual Procedure Side Surgeon p Repeat Section Bilateral Nora Osborn MD complications: none Status at Discharge Functional status at discharge: independent ambulation Time Spent with Patient Time attestation: Total time spent providing and/or coordinating discharge services: Exam Narrative: NAD abdomen soft, appropriately tender, incision CDI DS: Data Data Completed and Pending Pending studies at discharge: Pending at discharge 12/19/22 08:06 Surgical [PTH] Routine Discharge Plan Discharge Attending physician on discharge: Nora Osborn Discharging Clinician: Nora Osborn Anticipated Discharge Date/Time: 12/22/22 06:51 Patient Disposition: Home, Self-Care Activity: may shower, may drive after 2 weeks and pelvic rest Diet: regular Patient Instructions: Antibiotic Form Stand Alone Forms: General Discharge Information Follow-up/Referrals: Nora Osborn MD [Physician] - 1 Week Discharge Medications: New hydrocodone-acetaminophen 5-325 mg Tablet 1 tablet PO Q4-5H PRN (Reason: Moderate Pain (4-6)) Qty: 30 0RF docusate sodium 100 mg Capsule 100 mg PO BID PRN (Reason: constipation) Qty: 60 0RF ibuprofen 600 mg Tablet 600 mg PO Q6H PRN (Reason: Cramping) Qty: 60 0RF Continued albuterol 90 mcg/actuation Aerosol 90 mcg INHALATION BID PRN (Reason: Shortness Of Breath Or Wheezing) One Daily 28-800-440 mg-mcg-mg Combo Pack 1 pkg PO DAILY Discontinued Adult Low Dose Aspirin 81 mg tablet 81 mg BYMOUTH DAILY Claritin 10 mg tablet 10 mg DAILY Date of admission: 12/19/22 05:50 Primary Care Provider: Gifty,Jenny Admitting Provider: Nora Osborn Attending physician on admission: Nora Osborn Condition: Stable
[2022-12-22 08:20] VITALS: BP 135/83; PULSE 88; RESP 18; TEMP 36.8; O2SAT 100
[2022-12-22] MEDS: IBUPROFEN 600 MG TABLET PO (09:17)
[2022-12-22] MEDS: POLYSACCHARIDE IRON COMPLEX 150 MG CAPSULE PO (09:17)
[2022-12-22] MEDS: DOCUSATE SODIUM 100 MG CAPSULE PO (09:18)
[2022-12-22] MEDS: MULTIVIT/MIN/PREN/FOL AC/IRON TABLET 1 TAB PO (09:18)
[2022-12-22 13:00] VITALS: BP 140/81; PULSE 89; RESP 18; TEMP 36.3; O2SAT 98
[2022-12-23 09:22] VITALS: BP 134/87; PULSE 88; RESP 18; TEMP 36.7; O2SAT 100
== END 2022-12-22 16:08 | disposition home or self-care (01) | DRG 788 ==
LOC: ANHLDR 05:51 → ANHOB2 11:11
PROVIDERS: Admitting Provider Obstetrics & Gynecology; PCP Internal Medicine; Visit Provider Obstetrics & Gynecology
PROC: 10D00Z1 Extraction of Products of Conception, Low, Open Approach (ICD-10-PCS; CPT 59514; principal; 2022-12-19 07:30)
DX: O34.219 Maternal care for unspecified type scar from previous cesarean delivery (principal); O14.04 Mild to moderate pre-eclampsia, complicating childbirth; O99.02 Anemia complicating childbirth; O99.52 Diseases of the respiratory system complicating childbirth; J45.909 Unspecified asthma, uncomplicated; O76 Abnormality in fetal heart rate and rhythm complicating labor and delivery; D50.9 Iron deficiency anemia, unspecified; N20.0 Calculus of kidney; Z86.16 Personal history of COVID-19; Z3A.37 37 weeks gestation of pregnancy; Z37.0 Single live birth
CPT/HCPCS: 36415; 85025; 86592; 86850; 86900; 86901; 88307; A9270; J0131; J0690; J1100; J1756; J2274; J2370; J2405; J2590; J7120

== ENCOUNTER 2023-04-03 19:59 | Emergency (ER) | payer OTHER, SELFPAY ==
[2023-04-03 20:12] VITALS: BP 148/85; PULSE 74; RESP 17; TEMP 36.6; O2SAT 99
--- NOTE | 2023-04-04 00:32 | ED.EYEPROB ---
HPI - Eye Problem General Chief complaint: Eye Problems Stated complaint: eye complaint Time Seen by Provider: 04/04/23 00:17 Source: patient Mode of arrival: ambulatory Limitations: no limitations History of Present Illness HPI Narrative: Patient is a 32-year-old female who presents to the ED with report of right eye discomfort. Patient reports she woke up this morning with discomfort in her right eye. She noted her right eye to be red and have watery drainage. She thought her contacts may need to be changed and put a new pair in, but this did not improve symptoms. She took her contacts out and has since been wearing her glasses. She reports foreign body sensation. She denies vision changes, vision loss, blurry vision, fevers, periorbital redness or swelling. Related Data Home Medications Medication Instructions Recorded Confirmed albuterol 90 mcg/actuation aerosol 90 mcg inhalation BID PRN 10/30/22 12/19/22 inhaler Shortness Of Breath Or Wheezing vits 75-iron 28 mg-folic 1 pkg PO DAILY 10/30/22 12/19/22 acid 800 mcg-omega3 440 mg oral pack (One Daily ) Allergies Allergy/AdvReac Type Severity Reaction Status Date / Time fentanyl Allergy Unknown Unknown Verified 04/03/23 20:45 Review of Systems Review of Systems: CONSTITUTIONAL: Denies fever, chills, or sweats. EYES: See HPI. SKIN: Denies rash or itching. All systems reviewed & are unremarkable except as noted in HPI and below PMFSH Family History Family History Sibling Hypertension Asthma Father Family history of diabetes mellitus in first degree relative Family history of sleep apnea Grandparent Family history of malignant neoplasm of breast Family history of heart disease in male family member before age 55 Diabetes mellitus Other Family history of alcoholism Family history of malignant neoplasm Social History Social History Smoking status: Never smoker Second hand tobacco smoke exposure: No Alcohol intake: current Substance use: never Lack of Transportation: No Lack of Food: Never True Current Housing: I Have Housing Concerned About Future Housing: No Difficulty Paying Gas/Electric Bills: No Difficulty Paying for Meds: No Currently Unemployed: No Education: Bachelor's Degree Difficulty w/ Childcare or Family Care: No Spiritual care concerns: No Exam Narrative: GENERAL: Well appearing, well-nourished, non-toxic, in no acute distress. HEAD: Normocephalic, atraumatic. EYES: PERRLA/EOMI, L conjunctiva clear. Diffuse right conjunctival injection. Watery serous drainage from right eye. No obvious foreign body. Mild discomfort reported with eye movement. No significant periorbital swelling or erythema. NECK: Supple. No adenopathy, no masses. RESPIRATORY: Airway patent, respirations nonlabored. CARDIOVASCULAR: Regular rate and rhythm without murmurs, rubs, or gallops. Radial pulses 2+ and equal bilaterally. MUSCULOSKELETAL: Moves all extremities. Strength/ROM intact without gross deformities. SKIN: Warm, dry, normal color. No rashes. NEURO: A&O X3. Speech clear. Cranial nerves II-XII grossly intact. Steady gait. No ataxic movements. PSYCHIATRIC: Appropriate mood and affect. Normal interaction. Course Vital Signs Vital signs: Vital Signs Temperature 97.8 F 04/03/23 20:12 Pulse Rate 74 04/03/23 20:12 Respiratory Rate 17 04/03/23 20:12 Blood Pressure 148/85 H 04/03/23 20:12 Pulse Oximetry 99 04/03/23 20:12 Oxygen Delivery Room Air 04/03/23 20:12 Temperature 97.8 F 04/03/23 20:12 Pulse Rate 80 04/04/23 00:51 Respiratory Rate 14 04/04/23 00:51 Blood Pressure 137/85 04/04/23 00:51 Pulse Oximetry 100 04/04/23 00:51 Oxygen Delivery Room Air 04/03/23 20:12 MDM - Eye Problem MDM Narrative Medical decision m
[2023-04-04] MEDS: OFLOXACIN 0.3% OPHTH SOLN 5 ML BTL 3 DROP RIGHT EYE (00:47)
[2023-04-04] MEDS: TETRACAINE HCL 0.5% OPHTH SOLN 4 ML BTL 1 DROP (00:49)
[2023-04-04 00:51] VITALS: BP 137/85; PULSE 80; RESP 14; O2SAT 100
[2023-04-04] MEDS: FLUORESCEIN SOD 1 MG/STRIP EACH EYE (00:51)
== END 2023-04-04 00:53 | disposition home or self-care (01) ==
PROVIDERS: Emergency Provider Physician Assistant; PCP Internal Medicine
DX: S05.01XA Injury of conjunctiva and corneal abrasion without foreign body, right eye, initial encounter (principal); X58.XXXA Exposure to other specified factors, initial encounter
CPT/HCPCS: 99283; A9270

== ENCOUNTER 2024-08-25 19:29 | Emergency (ER) | payer BC, OTHER, SELFPAY ==
--- OUTSIDE RECORDS SUMMARY | 2024-08-25 19:31 | XMS_ITS | Clinical Summary ---
Author Organization [facility] Care Team Providers Care Rod Placer Name Role Phone Carolin Durbin MD Primary Care Provide r Allergies Active Allergy Reactions Criticality Noted Date Comments Fentanyl Other (See comments) Low 03/25/2014 dizziness Medications rosuvastatin (CRESTOR) 20 mg tablet Take 20 mg by mouth daily for 90 days 2 Active loratadine (CLARITIN) 10 mg tablet loratadine 10 mg tablet TAKE 1 TABLET BY MOUTH ONCE DAILY NEEDED Active fluticasone propionate (FLONASE) 50 mcg/actuation nasal spray fluticasone propionate 50 mcg/actuation nasal spray,suspension USE 1 SPRAY(S) IN EACH NOSTRIL ONCE DAILY Active albuterol HFA (PROVENTIL HFA,VENTOLIN HFA,PROAIR HFA) 90 mcg/actuation inhaler albuterol sulfate HFA 90 mcg/actuation aerosol inhaler Active aspirin 81 mg enteric coated tablet Take 1 tablet (81 mg total) by mouth daily Active Active Problems Problem Noted Date Diagnosed Date Asthma 07/28/2019 Uses intrauterine device for control 04/09 Surgical History Surgery Date Site/Laterality Comments SECTION Medical History Medical History Date Comments Allergic Asthma Hyperlipidemia Family History Medical History Relation Name Comments Diabetes Father Thyroid disease Mother Relation Name Status Comments Father Mother Alive Social History Tobacco Use Types Packs/Day Years Used Date Smoking Tobacco: Never Tobacco Cessation:Counseling Given: Not Answered Comments Unknown Sex and Gender Information Value Date Recorded Sex Assigned at Not on file Legal Sex Female 9:09 AM CDT Gender Identity Not on file Sexual Orientation Not on file Obstetrics History Last Filed Vital Signs Vital Sign Reading Time Taken Comments Blood Pressure 124/72 10/01/2023 10:07 AM CDT Pulse 96 10/01/2023 10:07 AM CDT Temperature 37 ??C (98.6 ??F) 10/01/2023 10:07 AM CDT Respiratory Rate 18 10/01/2023 10:07 AM CDT Oxygen Saturation 99% 10/01/2023 10:07 AM CDT Inhaled Oxygen Concentration - - Weight 90.7 kg (200 lb) 10/01/2023 10:07 AM CDT Height 167.6 cm (5' 6 ) 10/01/2023 10:07 AM CDT Body Mass Index 32.28 10/01/2023 10:07 AM CDT Plan of Treatment Health Maintenance Due Date Last Done Comments Cervical Cancer Screening 1990 Depression Screening 1990 Hepatitis C Screening 1990 Pneumococcal vaccine <65 (1 of 2 - PCV) 1996 Varicella Vaccines (1 of 2 - 13+ 2-dose series) 2003 Hepatitis B Screening 2008 Regular Well Visit/Exam 18-64 2008 Covid-19 Vaccine ( season) 2024 06/24/2021, 10/14/2020, 10/14/2020, Additional history exists Influenza Vaccine (#1) 2024 04/29/2020, 2019 DTaP/Tdap/Td Vaccine (3 - Td or Tdap) 07/28/2029 07/28/2019, 12/31/2015 HPV Vaccines Aged Out No longer eligi ble based on patient's age to complete this topic Insurance [employer] CHOICE PLUS [facility] CHOICE PLUS Care Teams Rod Placer Relationship Specialty Start Date End Date Carolin Durbin MD [address] [id number] PCP - General Internal Medicine 08/06/21
--- OUTSIDE RECORDS SUMMARY | 2024-08-25 19:31 | XMS_ITS | Referral Summary ---
Author Organization [facility] Address [address] [place] [address] Care Team Providers Care Publications Production Supervisor Name Role Phone Unavailable Primary Care Provider Unavailabl e Source Comments [facility],non-owned Affiliates and Associated Physician Practices is amultiple site organization consisting of ambulatory clinics and hospital sitesin [place], [place], [place] and [place]. This disclosure is being madepursuant to the Care Everywhere program and may not contain all information available regarding this patient. Last updated 18.[facility] Allergies Active Allergy Reactions Criticality Noted Date Comments Fentanyl Other 03/25/2014 dizziness Medications * Be aware that medications may not be up to date on this document. Alwaysverify current medications with the patient. Medication Sig Dispensed Refills Start Date End Date Status albuterol HFA (PROVENTIL;VENTOLIN; PROAIR) 108 (90 BASE) MCG/ACT inhalerIndications:A cute bronchitis, unspecified organism,Asthma, unspecified asthma severity, unspecified whether complicated, unspecified whether persistent (HCC) Inhale 2 puffs by mouth every 4 hours as needed for Shortness of Breath or Cough 1 Inhaler 02/21/2018 Active levonorgestrel (Mirena) 20 MCG/DAY IUD insert 02/14/2019 Active Vit-Fe Fumarate-FA ( vitamin) 28-0.8 MG tablet Take 1 (one) tablet by mouth once daily Active loratadine (Claritin) 10 MG tablet Take 1 (one) tablet by mouth once daily Active aspirin EC (Ecotrin) 81 MG tablet Take 1 (one) tablet by mouth once daily Active Active Problems Problem Noted Date Diagnosed Date H/O: 11/29/2022 Uses intrauterine device for control 04/09 Social History Tobacco Use Types Packs/Day Years Used Date Smoking Tobacco: Never Smokeless Tobacco: Never Tobacco Cessation:Counseling Given: Not Answered Alcohol Use Standard Drinks/Week Comments No 0 (1 standard drink = 0.6 oz pur e alcohol) Sex and Gender Information Value Date Recorded Sex Assigned at Not on file Gender Identity Not on file Sexual Orientation Not on file Last Filed Vital Signs Vital Sign Reading Time Taken Comments Blood Pressure 144/95 11/29/2022 9:36 AM CDT Pulse 92 11/29/2022 9:36 AM CDT Temperature 36.9 ??C (98.5 ??F) 07/24/2019 6:01 PM CS T Respiratory Rate 18 10/11/2022 9:58 AM CDT Oxygen Saturation 97% 07/24/2019 6:01 PM [employer]ER Inhaled Oxygen Concentration - - Weight 92.5 kg (204 lb) 11/29/2022 9:36 AM CDT Height 167.6 cm (5' 6 ) 11/29/2022 9:36 AM CDT Body Mass Index 32.93 11/29/2022 9:36 AM CDT Plan of Treatment Not on file
--- OUTSIDE RECORDS SUMMARY | 2024-08-25 19:31 | XMS_ITS | Patient Health Summary ---
Author Organization [facility] Address [address] [place] [address] Care Team Providers Care Manager Eligibility Name Role Phone Unavailable Primary Care Provider Unavailabl e Note from [facility],non-owned Affiliates and Associated Physician Practices is amultiple site organization consisting of ambulatory clinics and hospital sitesin [place], [place], [place] and [place]. This disclosure is being madepursuant to the Care Everywhere program and may not contain all information available regarding this patient. Last updated 18.[facility] Allergies * Fentanyl(Other) Medications * Be aware that medications may not be up to date on this document. Alwaysverify current medications with the patient. * albuterol HFA (PROVENTIL;VENTOLIN;PROAIR) 108 (90 BASE) MCG/ACT inhaler (Started 02/21/2018) Inhale 2 puffs by mouth every 4 hours as needed for Shortness of Breath or Cough * levonorgestrel (Mirena) 20 MCG/DAY IUD(Started 02/14/2019) insert * Vit-Fe Fumarate-FA ( vitamin) 28-0.8 MG tablet Take 1 (one) tablet by mouth once daily * loratadine (Claritin) 10 MG tablet Take 1 (one) tablet by mouth once daily * aspirin EC (Ecotrin) 81 MG tablet Take 1 (one) tablet by mouth once daily Active Problems Problem Noted Date Diagnosed Date [...] CDT Oxygen Saturation 97% 07/24/2019 6:01 PM CUSTOM SEAMSTRESS Inhaled Oxygen Concentration - - Weight 92.5 kg (204 lb) 11/29/2022 9:36 AM CDT Height 167.6 cm (5' 6 ) 11/29/2022 9:36 AM CDT Body Mass Index 32.93 11/29/2022 9:36 AM CDT Procedures * SONOGRAM - COMPLETE(Performed 11/29/2022) Performed for Abnormal ultrasound, Encounter for ultrasound to assess growth ([facility]) * SONOGRAM - COMPLETE(Performed 10/11/2022) Performed for History of delivery affecting ([facility]), Uterine scar from previous surgery affecting ([facility]), 27 weeks gestation of ([facility]), History of asthma * INFLUENZA A+B - POINT OF CARE (AMB)(Performed 07/24/2019) Performed for Upper respiratory tract infection, unspecified type * STREP A SCREEN - POINT OF CARE (AMB) STL(Performed 07/24/2019) Performed for Upper respiratory tract infection, unspecified type * STREP A SCREEN - POINT OF CARE (AMB) STL(Performed 03/08/2019) Performed for Acute pharyngitis, unspecified etiology * PULSE OXIMETRY - POINT OF CARE (AMB)(Performed 02/21/2018) Performed for Acute bronchitis, unspecified organism, Asthma, unspecified asthma severity, unspecified whether complicated, unspecified whether persistent ([facility]) Results * SONOGRAM - COMPLETE (11/29/2022 8:50 AM CDT) Only the most recent of2 resultswithin the time period is included. Anatomical Region Laterality Modality Other 11/29/2022 8:50 AM CDT Narrative 11/29/2022 10:31 AM CDT ? [facility] Maternal Medicine ? [facility] ?PHONE: ??FAX: Pat. Name: ?ANEL BENSON. No: ?[id number] Study Date: ?? 11/29/2022 ??8:50am , Age: ? 1990, 32 Pregnancies: ?? 2, Para 0101 Height: ? 66 in Weight: ? 205 lb LMP: ?04/04/2022 GA by LMP: ?34w1d GA by Base: ?? 34w1d ?? HARRY: 01/09/2023 GA by US: ? 35w1d ?? HARRY: 01/02/2023 GA Selected: ??34w1d (LMP) HARRY: ?01/09/2023 Referring MD: Nora Osborn MD [place] [employer]: ??Isabel Arzola RDMS CPT4: ? [id number] BMI: ?33.08 Hist/Ind: ? G1: C/S @ 36 weeks 6#12oz ?G2: Thin EMMANUEL outside U/S, Class I obesity, Borderline 3-hr GTT, Reevaluate EMMANUEL, GHTN MEASUREMENTS & AGE ? GROWTH EVALUATION Measurement ??GA ? Range ? Srce %for GA Ratios ----- ---- ------- BPD ??9.0 cm 36w2d (42g5u-97q9i) Hadl BPD 94% FL/BPD 0.73 (0.71 - 0.87) HC ??32.3 cm 36w3d (39w8s-84x3c) Hadl HC ??75% FL/AC ??0.22 (0.20 - 0.24) AC ??30.2 cm 34w1d (12d7q-07x6d) Hadl AC ??55% HC/AC ??1.07 (0.94 - 1.13) FL ?? 6.5 cm 33w5d (29x7x-22w3n) Hadl FL ??28% CI ? 0.80 (0.70 - 0.86) HL ?? 5.7 cm 33w0d (72r6z-14o7m) Mickey HL ??33% GA for sonogram 35w1d (52b4s-57n6f) ?? Weight Estimate: based on (BPD,HC,AC,FL) Avg ?Weight: 2437 gm (2082-2793gm) Had ? : 5lbs, 5oz ? Normal: 2399 gm (1799- 2008gm) Had ? Wt% ? 55% for 34w1d Heart Rate: 138 bpm Amniotic Fluid Index: 14.6cm (08.1-24.8) Q1: 5.3cm ??Q2: 3.4cm ??Q3: 3.0cm ??Q4: 2.9cm ?? Biophysical Profile: 05/01 Breathin ?? Tone: 2 ?? NST: 2 Movement: ??2 ?? AFV: ??2 EVAL, PLACENTA Presentation: cephalic Placenta: posterior Heart Rate: 138 bpm Amniotic Fluid Volume: normal Anatomy!Normal!Abnormal!Suboptimal!Prev. Seen!Comments Cranium ?! ?? x ??! ?! ?! ? x ?! Mdl (CSP/Thal! ?! ?! ?! ? x ?! Ventricles ?? ! ?! ?! ?! ? x ?! Choroid Plexu! ?! ?! ?! ? x ?! Cerebellum ?? ! ?! ?! ?! ? x ?! Cisterna M. ??! ?! ?! ?! ? x ?! Orbits ? ! ?! ?! ?! ? x ?! Profile ?! ?! ?! ?! ? x ?! Nasal Bone ?? ! ?! ?! ?! ? x ?! Lip ?! ?! ?! ?! ? x ?! Spine ?! ?? x ??! ?! ?! ?! Lungs ?! ?! ?! ?! ? x ?! 4 Chamber Hea! ?! ?! ?! ? x ?! LVOT ? ! ?! ?! ?! ? x ?! RVOT ? ! ?! ?! ?! ? x ?! 3 Vessel View! ?! ?! ?! ? x ?! 3 Vessel Trac! ?! ?! ?! ? x ?! Cross-over ?? ! ?! ?! ?! ? x ?! Ductal Arch ??! ?! ?! ?! ? x ?! Aortic Arch ??! ?! ?! ?! ? x ?! Caval View ?? ! ?! ?! ?! ? x ?! Situs ?! ?! ?! ?! ? x ?! Diaphragm ?! ?! ?! ?! ? x ?! Stomach ?! ?? x ??! ?! ?! ? x ?! Bowel ?! ?! ?! ?! ? x ?! Kidneys ?! ?? x ??! ?! ?! ? x ?! Bladder ?! ?? x ??! ?! ?! ? x ?! 3 Vessel Cord! ?! ?! ?! ? x ?! Cord In! ?! ?! ?! ? x ?! Upper Extremi! ?! ?! ?! ? x ?! Hands ?! ?! ?! ?! ? x ?! Lower Extremi! ?! ?! ?! ? x ?! Feet ? ! ?! ?! ?! ? x ?! External Nancy! ?! ?! ?! ? x ?! Placental Cor! ?! ?! ?! ? x ?! CLINICAL SUMMARY ASSESSMENT * [place] IUP at 34 weeks by stated EDC from LMP * Referred to [facility] for U/S and consultation secondary to: ? - Thin lower uterine segment on outside U/S ? - Previous delivery X 1 ? - Gestational hypertension (GHTN) starting @ 32 weeks * Today's ultrasound (U/S) findings: ? - growth is in the normal range ? - Amniotic fluid volume is normal range ? - Renal pelvis AP normal (< 7.0 mm) bilaterally ? - Biophysical profile (BPP) normal (05/01): NST reactive, moderate BTBV, normal baseline ? - Endovaginal U/S shows: ? - Normal cervical length ? - Lower anterior uterine wall appears intact ? - Uterine wall thickness is >= 3.8 mm throughout PAST MEDICAL & OBSTETRICAL HISTORY * Medications: vitamins & low-dose aspirin & PRN albuterol * Past Medical History: no CHTN, no DM, no thyroidopathy * Family history of anomalies, syndromes or developmental delay: 's uncle NTD, Cousin CP * Social History: denies ethanol, tobacco, drugs * Past Surgical History: C/S X1 * Past Obstetrical History: ? 1) C/S @ 36 weeks 6#12oz for NRFS at ? cm after IOL for DFM ? 2) Current ?- She is planning 0 more children after current ?- She is NOT planning a TOLAC but rather scheduled repeat C/S ?- The [facility] TOLAC calculator estimates 63% chance of in her case COUNSELING & RECOMMENDATIONS * Please see my 10/11/2022 consult * Considering all of the above, in my best medical opinion, I would recommend: ? - testing (e.g. NST+DB) 1X-weekly (2X-weekly if developes preeclampsia) ? - Deliver GHTN without severe-range BP @ 37w0d ? - She declines TOLAC & requests repeat C/S * Today regular contractions are noted on NST: to L&D for further evaluation COMMENTS * Findings were explained & questions were addressed & precautions were given * She was counseled that U/S may not detect all structural & functional maternal- abnormalities * Consult was 30 with >50% [id number] counseling & coordination of care, exclusive of procedures * Thank you very much for requesting our involvement in her obstetrical care Lester Ramos MD <Electronic Signature> ??11/29/2022 10:31am Nora Osborn MD [facility] ORDERABLES * INFLUENZA A+B - POINT OF CARE (AMB) (07/24/2019 6:11 PM CUSTOM SEAMSTRESS) Influenza A Antigen Rapid Negative Negative Influenza B Antigen Rapid Negative Negative Influenza Internal Control present NEGATIVE - POSITIVE Influenza Lot Number [id number] Influenza Expiration Date 10 30 2020 Other NASOPHARYNGEAL SWAB / Unknown 07/24/2019 6:11 PM CUSTOM SEAMSTRESS Keegan Basurto APRN-[facility] - POINT OF CA RE ORDERABLES * STREP A SCREEN - POINT OF CARE (AMB) STL (07/24/2019 6:08 PM CUSTOM SEAMSTRESS) Only the most recent of2 resultswithin the time period is included. Pathologist [facility] Strep A Rapid POCT Negative Negative Strep A Internal Control Present Lot # [id number] Expiration Date 12 20 2020 Throat ENTIRE THROAT (SURFACE REGION OF NECK) / Unknown 07/24/2019 6:08 PM CUSTOM SEAMSTRESS [facility] POINT OF [facility] RE ORDERABLES * PULSE OXIMETRY - POINT OF CARE (AMB) (02/21/2018) Pathologist [facility] Oximetry POCT 99 0 - 100 % QC Verified Yes Yes Blood BLOOD SPECIMEN / Unknown 02/21/2018 Keegan Basurto APRN-[facility] - POINT OF CA RE ORDERABLES
--- OUTSIDE RECORDS SUMMARY | 2024-08-25 19:31 | XMS_ITS | Referral Summary ---
Author Organization [facility] Care Team Providers Care Facility Coordinator Name Role Phone Carolin Durbin MD Primary [...] 07/28/2019 Uses intrauterine device for control 04/09 Social [...] 10/01/2023 10:07 AM CDT Plan of Treatment Not on file Insurance [facility] CHOICE PLUS [facility] CHOICE PLUS Care Teams Facility Coordinator Relationship Specialty Start Date End Date Carolin Durbin MD [address] [address] PCP - General Internal Medicine 08/06/21
--- OUTSIDE RECORDS SUMMARY | 2024-08-25 19:31 | XMS_ITS | Clinical Summary ---
Author Organization [facility] Address [address] [place] [address] Care Team Providers Care Site Planner Name Role Phone Unavailable Primary Care Provider Unavailabl e Source Comments [facility],non-owned Affiliates and Associated Physician Practices is amultiple site organization consisting of ambulatory clinics and hospital sitesin [place], [place], [place] and [place]. This disclosure is being madepursuant to the Care Everywhere program and may not contain all information available regarding this patient. Last updated 18.[facility] Allergies Active Allergy Reactions Criticality Noted Date [...] 11/29/2022 Uses intrauterine device for control 04/09 Family History Medical History Relation Name Comments Diabetes - Type 2 Father Hypertension Father Hypertension Mother Asthma Neg Hx Autoimmune Disease Neg Hx Bipolar Disorder Neg Hx Cancer - Breast Neg Hx Cancer - Colon Neg Hx Cancer - Other Neg Hx Cancer - Ovarian Neg Hx Cancer - Pancreatic Neg Hx Cancer - Prostate Neg Hx Depression Neg Hx Eczema Neg Hx Migraine Neg Hx Osteoporosis Neg Hx Seizures Neg Hx Sudd. 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 Inhaled Oxygen Concentration - - Weight 92.5 kg (204 lb) 11/29/2022 9:36 AM CDT Height 167.6 cm (5' 6 ) 11/29/2022 9:36 AM CDT Body Mass Index 32.93 11/29/2022 9:36 AM CDT Plan of Treatment Health Maintenance Due Date Last Done Comments PAP SMEAR 1990 HIV SCREENING 2005 HEPATITIS C SCREENING 07/08/2008 DTAP/TDAP/TD VACCINES (1 - Tdap) 2009 HEPATITIS B VACCINE (1 of 3 - 19+ 3-dose series) 2009 COVID-19 VACCINE ( season) 2024 06/02/2022, 06/24/2021, 10/14/2020, Additional history exists INFLUENZA VACCINE (#1) 2024 2, 04/29/2020, 07/28/2019 DEPRESSION SCREENING 07/23/2024 ZOSTER VACCINE (1 of 2) 2040 HIB VACCINE Aged Out No longer eligi ble based on patient's age to complete this topic HPV VACCINE Aged Out No longer eligi ble based on patient's age to complete this topic MENINGOCOCCAL (Group B) VACCINE Aged Out No longer eligible based on patient's age to complete this topic MENINGOCOCCAL VACCINE Aged Out No thomas paula eligible based on patient's age to complete this topic PNEUMOCOCCAL VACCINE Aged Out No long er eligible based on patient's age to complete this topic Anel Celaya Personal/Family Spouse [address] [place] [phone]
--- NOTE | 2024-08-25 19:34 | ED_ITS ---
HPI - URI/Sore Throat General Chief Complaint: Upper Respiratory Infection Stated Complaint: Fever/Headache Time Seen by Provider: 08/25/24 19:34 Source: patient Mode of arrival: ambulatory Limitations: no limitations History of Present Illness HPI Narrative: patient is a 34-year-old female with a cough and congestion with fever for the past 2 days. She started not feeling well yesterday. She had exposure to C OVID. She also had exposure to flu. MD elicited complaint: fever, cough and nasal congestion Pertinent past history: other ( Negative) Onset (ago): day(s) (2) Consistency: constant Severity: mild Pain scale (0-10): 1 Description of mucous: clear Able to tolerate fluids by mouth: Yes Exacerbating factors: nothing Relieving factors: nothing Context: sick contacts and other(s) with similar symptoms Associated symptoms: denies other symptoms and cough Treatments prior to arrival: none Related Data Home Medications ?Medication ?Instructions ?Recorded ?Confirmed ?Last Taken ?Type albuterol 90 mcg/actuation aerosol 90 mcg inhalation BID PRN 10/30/22 08/25/24 Unknown History inhaler Shortness Of Breath Or Wheezing Allergies Allergy/AdvReac Type Severity Reaction Status Date / Time fentanyl Allergy Mild Dizziness Verified 08/25/24 20:11 Review of Systems Review of Systems: All systems reviewed & are unremarkable except as noted in HPI and below Constitutional: Constitutional: Reports no additional constitutional complaints Eyes: Eyes: Reports no additional eye complaints ENT: Reports system reviewed and no additional complaints, except as documented Cardiovascular: Cardiovascular: Reports no additional cardiovascular complaints Respiratory: Respiratory: Reports no additional respiratory complaints Gastrointestinal: Gastrointestinal: Reports no additional gastrointestinal complaints Genitourinary: Genitourinary: Reports no additional female genitourinary complaints Musculoskeletal: Musculoskeletal: Reports no additional musculoskeletal complaints Integumentary/Breasts: Skin/Breast: Reports system reviewed and no additional complaints, except as docu Neurologic: Reports system reviewed and no additional complaints, except as documented Psychiatric: Psychiatric: Reports no additional psychiatric complaints Endocrine: Endocrine: Reports no additional endocrine complaints Hematologic/Lymphatic: Hematologic/Lymphatic: Reports no additional hematologic/lymphatic complaints Allergic/Immunologic: Allergic/Immunologic: Reports no additional allergic/immunologic complaints PMFSH Family History Family History Sibling Hypertension Asthma Father Family history of diabetes mellitus in first degree relative Family history of sleep apnea Grandparent Family history of malignant neoplasm of breast Family history of heart disease in male family member before age 55 Diabetes mellitus Other Family history of alcoholism Family history of malignant neoplasm Social History Social History Smoking status: Never smoker Second hand tobacco smoke exposure: No Alcohol intake: current Substance use: never Lack of Transportation: No Lack of Food: Never True Current Housing: I Have Housing Concerned About Future Housing: No Difficulty Paying Gas/Electric Bills: No Difficulty Paying for Meds: No Currently Unemployed: No Education: Bachelor's Degree Difficulty w/ Childcare or Family Care: No Spiritual care concerns: No Exam Const: General: ill appearing Nutritional Appearance: well nourished O rientation/consciousness: patient oriented x3 Limitations: no limitations HENMT: Head: normal to inspection Ears: external ears normal Face/Nose/Sinus: Normal external nose present Eyes: Conjunctivae: conjunctivae normal Pupils: Equal, round and reactive pupils present EOM: EOMs intact bilaterally Neck: Neck: normal visual inspection Chest: Chest palpation & inspection: normal inspection of the chest Resp: Effort & Inspection: normal respiratory effort and not labored Auscultation: clear to auscultation bilaterally and no crackles Cardio: Rate: regular rate Rhythm: regular rhythm Heart sounds: no murmurs GI: Inspection: non-distended GI Palp: Yes Soft to palpation and No Tenderness to palpation present (GI) Auscultation: normal bowel sounds : General: Yes bladder normal to palpation Back/Spine/Pelvis: Back: no CVA tenderness Skin: General skin exam: normal color Rashes: no rashes Wounds: no wounds Neuro: General: patient oriented x3 Cranial nerves: Yes Nystagmus not present Speech: normal speech Extrem: General: normal to inspection Psych: Mental Status: mental status grossly normal Affect: normal affect Attitude: cooperative Course Vital Signs Vital signs: Vital Signs Temperature 36.8 C 08/25/24 19:53 Pulse Rate 124 H 08/25/24 19:53 Respiratory Rate 18 08/25/24 19:53 Blood Pressure 142/95 H 08/25/24 19:53 Pulse Oximetry 96 08/25/24 19:53 Oxygen Delivery Room Air 08/25/24 19:53 Temperature 37.2 C 08/25/24 21:17 Pulse Rate 102 H 08/25/24 21:17 Respiratory Rate 18 08/25/24 21:17 Blood Pressure 136/96 H 08/25/24 21:17 Pulse Oximetry 99 08/25/24 21:17 Oxygen Delivery Room Air 08/25/24 21:17 MDM - URI/Sore Throat MDM Narrative Medical decision making narrative: patient is a 34-year-old female with headache and fever and general malaise. We will do a COVID swab panel. No signs of meningitis. Lab Data Attestation: I reviewed the patient's lab results. Labs: Lab Results 08/25/24 Range/Units 20:10 Influenza A (RT-PCR) Negative (Negative) Influenza B (RT-PCR) Negative (Negative) RSV (RT-PCR) Negative (Negative) SARS-CoV-2 RNA (RT-PCR) Positive A (Negative) COVID positive Discharge Plan Discharge Clinical Impression: COVID Patient Disposition: Home, Self-Care Condition: Stable Instructions: COVID-19 (Coronavirus Disease 2019) (ED) Additional Instructions: patient was instructed to follow up with the primary doctor about her elevated blood pressure. Patient Language: Burmese Prescriptions: No Action albuterol 90 mcg/actuation Aerosol 90 mcg INHALATION BID PRN (Reason: Shortness Of Breath Or Wheezing) Follow-up/Referrals: UNKNOWN,DOCTOR [Primary Care Provider] - Stand Alone Forms: Work/School Release IP Time of Disposition: 21:02
[2024-08-25 19:53] VITALS: BP 142/95; PULSE 124; RESP 18; TEMP 36.8; O2SAT 96
--- NOTE | 2024-08-25 19:54 | PC.NURSE ---
COVID PCR obtained and taken to lab
--- OUTSIDE RECORDS SUMMARY | 2024-08-25 20:13 | XMS_ITS | Clinical Summary ---
Author Organization [facility] Address [address] [place] [address] Care Team Providers Care Medical Observer Name Role Phone Unavailable Primary Care Provider Unavailabl e Source Comments [facility],non-owned Affiliates and Associated Physician Practices is amultiple site organization consisting of ambulatory clinics and hospital sitesin [place], [place], [place] and [place]. This disclosure is being madepursuant to the Care Everywhere program and may not contain all information available regarding this patient. 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
--- OUTSIDE RECORDS SUMMARY | 2024-08-25 20:13 | XMS_ITS | Clinical Summary ---
Author Organization [facility] Health[facility] Care Team Providers Care Channel Process Supervisor Name Role Phone Carolin Durbin MD Primary [...] age to complete this topic Insurance [employer] Address: [address] [place] [address] [employer] CHOICE PLUS [facility] CHOICE PLUS Care Teams Channel Process Supervisor Relationship Specialty Start Date End Date Carolin Durbin MD [address] [address] PCP - General Internal Medicine 08/06/21
--- OUTSIDE RECORDS SUMMARY | 2024-08-25 20:13 | XMS_ITS | Patient Health Summary ---
Author Organization [facility] Address [address] [place] [address] Care Team Providers Care Customer Service Correspondence Clerk Name Role Phone Unavailable Primary Care Provider Unavailabl e Note from [facility],non-owned Affiliates and Associated Physician Practices is amultiple site organization consisting of ambulatory clinics and hospital sitesin [place], [place], [place] and [place]. This disclosure is being madepursuant to the Care Everywhere program and may not contain all information available regarding this patient. Last updated 18.[facility] Allergies * Fentanyl(Other) Medications * Be aware [...] CDT Oxygen Saturation 97% 07/24/2019 6:01 PM BOAT OAR MAKER Inhaled Oxygen Concentration - - Weight 92.5 kg (204 lb) 11/29/2022 9:36 AM CDT Height 167.6 cm (5' 6 ) 11/29/2022 9:36 AM CDT Body Mass Index 32.93 11/29/2022 9:36 AM CDT Procedures * SONOGRAM - COMPLETE(Performed 11/29/2022) Performed for Abnormal ultrasound, Encounter for ultrasound to assess growth ([facility]) * SONOGRAM - COMPLETE(Performed 10/11/2022) Performed for History of delivery affecting ([facility]), Uterine scar from previous surgery affecting ([facility]), 27 weeks gestation of ([facility]), History of asthma * INFLUENZA A+B - [...] severity, unspecified whether complicated, unspecified whether persistent ([facility]) Results * SONOGRAM - COMPLETE (11/29/2022 8:50 AM CDT) Only the most recent of2 resultswithin the time period is included. Anatomical Region Laterality Modality Other 11/29/2022 8:50 AM CDT Narrative 11/29/2022 10:31 AM CDT ? [facility] ? [facility] ?PHONE: ??FAX: Pat. Name: ?ANEL BENSON. No: ?[id number] Study Date: ?? 11/29/2022 ??8:50am , Age: ? 1990, 32 Pregnancies: ?? 2, Para 0101 Height: ? 66 in Weight: ? 205 lb LMP: ?04/04/2022 GA by LMP: ?34w1d GA by Base: ?? 34w1d ?? HARRY: 01/09/2023 GA by US: ? 35w1d ?? HARRY: 01/02/2023 GA Selected: ??34w1d (LMP) HARRY: ?01/09/2023 Referring MD: Nora Osborn MD [employer] Meteorological Man: ??Isabel Arzola RDMS CPT4: ? 52908,[id number] BMI: ?33.08 Hist/Ind: ? G1: C/S @ 36 weeks 6#12oz ?G2: Thin EMMANUEL outside U/S, Class I obesity, Borderline 3-hr GTT, Reevaluate EMMANUEL, GHTN MEASUREMENTS & AGE ? GROWTH EVALUATION Measurement ??GA ? Range ? Srce %for GA Ratios ----- ---- ------- BPD ??9.0 cm 36w2d (06w7e-51d5b) Hadl BPD 94% FL/BPD 0.73 (0.71 - 0.87) HC ??32.3 cm 36w3d (91f4w-40h2k) Hadl HC ??75% FL/AC ??0.22 (0.20 - 0.24) AC ??30.2 cm 34w1d (42l0i-20y0s) Hadl AC ??55% HC/AC ??1.07 (0.94 - 1.13) FL ?? 6.5 cm 33w5d (71x1f-63k1l) Hadl FL ??28% CI ? 0.80 (0.70 - 0.86) HL ?? 5.7 cm 33w0d (82n4l-67i0f) Mickey HL ??33% GA for sonogram 35w1d (15g7q-17a2v) ?? Weight Estimate: based on (BPD,HC,AC,FL) Avg ?Weight: 2437 gm (2082-2793gm) Had ? : 5lbs, 5oz ? Normal: 2399 gm (1799- 9308gm) Had ? Wt% ? 55% for 34w1d [...] stated EDC from LMP * Referred to [facility] for U/S and consultation secondary to: [...] but rather scheduled repeat C/S ?- The [facility] TOLAC calculator estimates 63% chance of in [...] abnormalities * Consult was 30 with >50% [id number] counseling & coordination of care, exclusive of procedures * Thank you very much for requesting our involvement in her obstetrical care Lester Ramos MD <Electronic Signature> ??11/29/2022 10:31am Nora Osborn MD [facility] ORDERABLES * INFLUENZA A+B - POINT OF CARE (AMB) (07/24/2019 6:11 PM BOAT OAR MAKER) Influenza A Antigen Rapid Negative Negative Influenza B Antigen Rapid Negative Negative Influenza Internal Control present NEGATIVE - POSITIVE Influenza Lot Number [id number] Influenza Expiration Date 10 30 2020 Other NASOPHARYNGEAL SWAB / Unknown 07/24/2019 6:11 PM BOAT OAR MAKER Keegan Basurto APRN-[facility] - POINT OF CA RE ORDERABLES * STREP A SCREEN - POINT OF CARE (AMB) STL (07/24/2019 6:08 PM BOAT OAR MAKER) Only the most recent of2 resultswithin the time period is included. Pathologist [facility] Strep A Rapid POCT Negative Negative Strep A Internal Control Present Lot # [id number] Expiration Date 12 20 2020 Throat ENTIRE THROAT (SURFACE REGION OF NECK) / Unknown 07/24/2019 6:08 PM BOAT OAR MAKER [facility] POINT OF CA RE ORDERABLES * PULSE OXIMETRY - POINT OF CARE (AMB) (02/21/2018) Pathologist [facility] Oximetry POCT 99 0 - 100 % QC Verified Yes Yes Blood BLOOD SPECIMEN / Unknown 02/21/2018 Keegan Basurto APRN-[facility] - POINT OF CA RE ORDERABLES
--- OUTSIDE RECORDS SUMMARY | 2024-08-25 20:13 | XMS_ITS | Referral Summary ---
Author Organization [facility] Care Team Providers Care Director Of Retention Name Role Phone Carolin Durbin MD Primary [...] Plan of Treatment Not on file Insurance [facility] CHOICE PLUS [facility] CHOICE PLUS Care Teams Director Of Retention Relationship Specialty Start Date End Date Carolin Durbin MD [address] [address] PCP - General Internal Medicine 08/06/21
--- OUTSIDE RECORDS SUMMARY | 2024-08-25 20:13 | XMS_ITS | Referral Summary ---
Author Organization [facility] Address [address] [place] [address] Care Team Providers Care Student Driving Instructor Name Role Phone Unavailable Primary Care Provider Unavailabl e Source Comments [facility],non-owned Affiliates and Associated Physician Practices is amultiple site organization consisting of ambulatory clinics and hospital sitesin [place], [place], [place] and [place]. This disclosure is being madepursuant to the Care Everywhere program and may not contain all information available regarding this patient. Last updated 18.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
[2024-08-25 20:51] LABS: Influenza B QL RT-PCR Negative (Negative); SARS-CoV-2 RNA PCR Positive (Negative)
[2024-08-25 20:52] LABS: Influenza A QL RT-PCR Negative (Negative); RSV RNA, RT-PCR Negative (Negative)
[2024-08-25 21:17] VITALS: BP 136/96; PULSE 102; RESP 18; TEMP 37.2; O2SAT 99
== END 2024-08-25 21:20 | disposition home or self-care (01) ==
PROVIDERS: Emergency Provider Emergency Medicine
DX: U07.1 COVID-19 (principal)
CPT/HCPCS: 87637; 99283